=== PATIENT | female | born 1950 | race Caucasian/White ===

== ENCOUNTER 2020-02-26 09:54 | Emergency (ER) | payer MEDICARE, SELFPAY ==
[2020-02-26 10:01] VITALS: BP 132/69; PULSE 72; RESP 12; TEMP 36.7; O2SAT 100
--- NOTE | 2020-02-26 10:17 | ED.SKABFB ---
HPI - Skin/Abscess/Foreign Bdy General Chief complaint: Skin/Abscess/Foreign Body Stated complaint: FACIAL LAC Time Seen by Provider: 02/26/20 09:57 Source: patient Mode of arrival: ambulatory Limitations: no limitations History of Present Illness HPI narrative: 69-year-old female presents to [facility] care with complaints of abrasion to left facial cheek. Patient reports that she sustained an abrasion to left facial cheek from a shavonne yard ornament yesterday. Patient reports that her last Tetanus was 10-15 years ago. Patient reports that she has noticed mild swelling and erythema to area this AM. Patient denies fever, body aches, chills, nausea, vomiting and diarrhea MD complaint: other (abrasion ) Onset (ago): day(s) (1) Tetanus up to date: no Location: face (left facial cheek ) Relieving factors: none Exacerbating factors: none Context: none Associated symptoms: denies other symptoms Treatments prior to arrival: none Related Data Home Medications Medication Instructions Recorded Confirmed albuterol sulfate INHALATION 02/26/20 amlodipine 02/26/20 budesonide [Rhinocort Allergy] 1 spray INTRANASAL DAILY 02/26/20 02/26/20 cetirizine [Zyrtec] mg 02/26/20 epinephrine 02/26/20 hydrochlorothiazide 02/26/20 losartan 02/26/20 metoprolol succinate PO 02/26/20 Allergies Allergy/AdvReac Type Severity Reaction Status Date / Time mold Allergy Hives Verified 02/26/20 10:21 sumatriptan AdvReac Mild Swelling Verified 02/26/20 10:21 of Lip/Tongue/Throat SHELLFISH Allergy Unknown Swelling Uncoded 02/26/20 10:02 of Lip/Tongue/Throat Review of Systems Constitutional: Constitutional: Denies chills, Denies fatigue, Denies fever(s) and Denies weakness ENT: Denies dysphagia, Denies dizziness, Denies epistaxis and Denies sore throat Gastrointestinal: Gastrointestinal: Denies abdominal pain, Denies diarrhea, Denies nausea and Denies vomiting Integumentary/Breasts: Skin/Breast: Denies pruritus and Denies skin ulcer Comments: abrasion to left facial cheek Neurologic: Denies vertigo, Denies dizziness, Denies syncope and Denies focal weakness Hematologic/Lymphatic: Hematologic/Lymphatic: Denies easy bruising PMFSH Past Medical History Medical History (Updated 02/26/20 @ 10:33 by Deidra Sparks APRN) Asthma Breast cancer Hypertension Surgical History Surgical History (Updated 02/26/20 @ 10:28 by Deidra Sparks APRN) H/O lumpectomy Social History Social History (Updated 02/26/20 @ 10:29 by Deidra Sparks APRN) Smoking status: Never smoker Exam Const: General: no acute distress Nutritional Appearance: well nourished Orientation/consciousness: patient oriented x3 Neck: Neck: normal visual inspection Resp: Effort & Inspection: normal respiratory effort, not labored, no retractions and not tachypneic Auscultation: clear to auscultation bilaterally Cardio: Rate: regular rate, not bradycardic and not tachycardic Rhythm: regular rhythm Heart sounds: no murmurs Skin: General skin exam: normal color, no jaundice and no pallor Other: 1 cm abrasion noted to left facial cheek with minimal amount of surrounding erythema and swelling. There is no purulent drainage, bleeding or bruising noted Neuro: General: patient oriented x3 Psych: Appearance: grossly normal Mental Status: mental status grossly normal Affect: normal affect Attitude: cooperative Thought content: Yes Normal thought content present Course Vital Signs Vital signs: Vital Signs Temperature 36.7 C 02/26/20 10:01 Pulse Rate 72 02/26/20 10:01 Respiratory Rate 12 02/26/20 10:01 Blood Pressure 132/69 02/26/20 10:01 Pulse Oximetry 100 02/26/20 10:01 Temperature 36.7 C 02/26/20 10:01 Pulse Rate 72 02/26/20 10:01 Respiratory Rate 12 02/26/20 10:01 Blood Pressure 132/69 02/26/20 10:01 Pulse Oximetry 100 02/26/20 10:01 MDM - Skin/Abscess/Foreign Bdy MDM Narrative Medical decis[facility]
[2020-02-26] MEDS: TETANUS,DIPHTHERIA,AC PERTUSSIS ADULT (0.5 ML) BOOSTRIX IM (10:26)
== END 2020-02-26 10:45 | disposition home or self-care (01) ==
PROVIDERS: Emergency Provider Nurse Practitioner Family
DX: L03.211 Cellulitis of face (principal); S00.81XA Abrasion of other part of head, initial encounter; X58.XXXA Exposure to other specified factors, initial encounter; Z23 Encounter for immunization; J45.909 Unspecified asthma, uncomplicated; I10 Essential (primary) hypertension; Z85.3 Personal history of malignant neoplasm of breast
CPT/HCPCS: 90471; 90715; 99213; G0463

== ENCOUNTER 2022-09-27 08:09 | Emergency (ER) | payer MEDICARE, SELFPAY ==
[2022-09-27 08:18] VITALS: BP 118/63; PULSE 76; RESP 16; TEMP 36.2; O2SAT 98
--- NOTE | 2022-09-27 08:39 | ED.URI ---
HPI - URI/Sore Throat General Chief Complaint: Upper Respiratory Infection Stated Complaint: COUGH/WHEEZING/ASTHMA/CHILLS/FEVER Time Seen by Provider: 09/27/22 08:39 Source: patient, RN notes reviewed and old records reviewed Mode of arrival: ambulatory Limitations: no limitations History of Present Illness HPI Narrative: 71 year old female who presents to [facility] care with complaints of cough with loose productive white milky appearing sputum for 3 days, with wheezing, fevers, chills, headaches and body aches starting last night with highest temp noted at 100F. Patient reports that she has used her Breo inhaler, taking Mucinex and Tylenol and takes daily Zyrtec. Patient reports history of allergies sees vice president and also asthma. Patient denies any nausea, vomiting or diarrhea, has been COVID vaccinated and has had flu shot. Patient denies any acute respiratory difficulty with respirations even and no retractions or tachypnea noted. MD elicited complaint: fever, cough and other (Wheezing,asthma, chills ) Pertinent past history: asthma Onset (ago): day(s) (3) Description of mucous: other (white) Able to tolerate fluids by mouth: Yes Treatments prior to arrival: acetaminophen and other (Breo inhaler, Zyrtec, Mucinex) Related Data Home Medications Medication Instructions Recorded Confirmed albuterol sulfate 90 mcg/actuation 2 puff inhalation PRN PRN Wheezing 02/26/20 09/27/22 aerosol inhaler amlodipine 2.5 mg tablet 2.5 mg PO DAILY 02/26/20 09/27/22 cetirizine 10 mg tablet (Zyrtec) 10 mg PO DAILY 02/26/20 09/27/22 epinephrine 0.3 mg/0.3 mL 0.3 mg IM PRN PRN Allergic Reaction 02/26/20 09/27/22 injection, auto-injector hydrochlorothiazide 25 mg tablet 25 mg PO DAILY 02/26/20 09/27/22 losartan 50 mg tablet 50 mg PO DAILY 02/26/20 09/27/22 metoprolol succinate 25 mg 25 mg PO DAILY 02/26/20 09/27/22 tablet,extended release 24 hr fluticasone furoate 100 1 inh inhalation DAILY 09/27/22 09/27/22 mcg-vilanterol 25 mcg/dose inhalation powder (Breo Ellipta) Allergies Allergy/AdvReac Type Severity Reaction Status Date / Time mold Allergy Hives Verified 09/27/22 08:32 sumatriptan AdvReac Mild Swelling Verified 09/27/22 08:32 of Lip/Tongue/Throat SHELLFISH Allergy Unknown Swelling Uncoded 02/26/20 10:02 of Lip/Tongue/Throat Review of Systems Review of Systems: CONSTITUTIONAL: Reports malaise, chills, sweats, or fever. EYES: Denies visual changes, redness, or discharge. ENT: Reports rhinorrhea, congestion, sinus pain,no otalgia and no sore throat. CARDIOVASCULAR: Denies chest pain, palpitations, or edema. RESPIRATORY: Reports cough.? Denies any acute dyspnea. GASTROINTESTINAL: Denies abdominal pain, nausea, vomiting, diarrhea SKIN: Denies rash or itching. MUSCULOSKELETAL: Reports myalgia. NEUROLOGIC: Reports headache. All systems reviewed & are unremarkable except as noted in HPI and below PMFSH Past Medical History Medical History (Updated 09/27/22 @ 09:33 by Emma Day NP) Asthma Breast cancer Environmental allergies GERD (gastroesophageal reflux disease) Hypertension Surgical History Surgical History (Updated 09/27/22 @ 09:35 by Emma Day NP) H/O lumpectomy left and radiation treatments S/P tendon repair right hand Social History Social History (Updated 09/27/22 @ 09:34 by Emma Day NP) Smoking status: Never smoker Alcohol intake: current Alcohol use details: rare social Substance use type: does not use Living arrangements: with family Gender identity (if verbalized by the patient): Female Comments At time of signature, agree with nursing past medical, surgical, social and family history. There is no relevant family history pertinent to the presenting complaint Exam Narrative: GENERAL: Well-appearing, well-nourished, and in no acute distress. HEAD: Normocephalic EYES: PERRLA, conjunctivae clear ENT: Nares
== END 2022-09-27 09:00 | disposition home or self-care (01) ==
PROVIDERS: Emergency Provider Registered Nurse
DX: J10.1 Influenza due to other identified influenza virus with other respiratory manifestations (principal); J45.41 Moderate persistent asthma with (acute) exacerbation; Z20.822 Contact with and (suspected) exposure to COVID-19; K21.9 Gastro-esophageal reflux disease without esophagitis; I10 Essential (primary) hypertension; Z85.3 Personal history of malignant neoplasm of breast; Z92.3 Personal history of irradiation
CPT/HCPCS: 87426; 87804; 99213; C9803; G0463

== ENCOUNTER 2022-12-27 10:34 | Outpatient (CLI) | payer MEDICARE, SELFPAY ==
--- NOTE | 2022-12-27 10:53 | ECG_ITS ---
Measurements Intervals [place] Rate: 72 P: 68 MD: 233 QRS: -47 QRSD: 126 T: 43 QT: 414 QTc: 456 Interpretive Statements SINUS RHYTHM WITH FIRST DEGREE AV BLOCK LEFT BUNDLE BRANCH BLOCK NO PREVIOUS ECG AVAILABLE FOR COMPARISON Electronically Signed On 12-27-2022 15:25:15 CDT by Marsha Chawla M.D.
[2022-12-27 11:32] LABS: Anion Gap 4 mmol/L (8-16); Blood Urea Nitrogen 17 mg/dL (7-17); Calcium 9.2 mg/dL (8.4-10.2); Carbon Dioxide 29 mmol/L (22-30); Chloride 104 mmol/L (98-107); Estimated Glomerular Filt Rate > 60; Glucose 86 mg/dL (65-110); Potassium 3.4 mmol/L (3.4-5.0); Sodium 137 mmol/L (137-145)
== END 2022-12-27 10:35 | disposition home or self-care (01) ==
PROVIDERS: Anesthesiology; Visit Provider Podiatrist Foot & Ankle Surgery
DX: Z01.812 Encounter for preprocedural laboratory examination (principal); Z01.810 Encounter for preprocedural cardiovascular examination; I10 Essential (primary) hypertension; Z79.899 Other long term (current) drug therapy; I44.7 Left bundle-branch block, unspecified; I44.0 Atrioventricular block, first degree
CPT/HCPCS: 36415; 80048; 93005

== ENCOUNTER 2022-12-29 00:30 | Day surgery (SDC) | payer MEDICARE, SELFPAY ==
[2022-12-22 09:41] VITALS: BMI 28.7
--- NOTE | 2022-12-22 09:54 | PC.NURSE ---
PRE-OP INSTRUCTIONS, PLEASE READ CAREFULLY Report to the Outpatient Waiting Room, entrance under the green pavilion located off [facility], at time _0700_ on date _12/29/22_. Planned Procedure Time: _0900_. Time changes happen often and if your time is changed the preop area will call you the afternoon before. - You and your visitor will be asked to self-screen and do not enter if you have any COVID symptoms. - A mask is optional within the hospital at this time. Patients may have clear liquids (water, carbonated beverages, clear teas, apple juice) until 3 hours prior to surgery (0600 AM) with a maximum of 20 ounces. - No food from midnight until time of surgery Take the following medications with a SIP of water the morning of surgery: _AMLODIPINE, METOPROLOL, BREO INHALER_ DO NOT STOP ANY OF YOUR OTHER PRESCRIPTION MEDICATIONS PRIOR TO SURGERY ?EXCEPT THE FOLLOWING Medications to discontinue per ANESTHESIA - _MULTIVITAMIN 3 DAYS PRIOR TO SURGERY, Date to take last dose 12/25/22_ Please no make-up, nail moroccan, hairspray, perfume, deodorant, or body powder the day of surgery. No jewelry (including any body piercings) or valuables the day of surgery, leave them at home. Please take a shower or bath the night before, or the morning of, surgery with an antibacterial soap. Wear comfortable, loose fitting clothing. - Jewelry must be removed prior to entering the operating room. Rings and piercings that are not removed may be cut off. - The hospital will not accept responsibility for valuables. - Please leave all valuables, including medications, at home the day of surgery. If you are going home after surgery, a licensed motor bus driver must drive you home. - NO public transportation without another adult if you receive anesthesia. - We recommend that an adult stay with you for 24 hours following discharge. - We also recommend that you do not drive, make important decision, drink alcoholic beverages, or take any drugs that were not prescribed by your health care provider for at least 24 hours after your discharge time. Follow any additional instructions given to you from your surgeon. If you or anyone in your household have experienced Covid symptoms in the past week, please notify your surgeon or the nurse liaison at the phone number below for possible testing. Instructions given to _PATIENT_and asked if any additional questions and then verbalized understanding. Patient advised to call surgeon office or pre surgery nurse liaison [phone] if any additional questions.
[2022-12-29] VITALS (8 sets, daily range): BP systolic 96–146; BP diastolic 42–89; PULSE 63–85; RESP 12–18; TEMP 36.1–36.2; O2SAT 98–100
--- NOTE | ~2022-12-29 | XR_ITS ---
EXAMINATION: XR surgery orthopedic DATE: 12/29/2022 12:52 INDICATION: Orthopedic procedure at the right foot. TECHNIQUE: 2 fluoroscopic images of the right hindfoot were obtained during procedure performed by Dr Kentrell Hardwick. Radiologist was not present for the imaging or procedure. The amount of fluoroscopy time used during this procedure was 0.1 minutes. COMPARISON: None. FINDINGS: Initial image demonstrates the tip of a hemostat projecting over a small calcific density representin g an enthesophyte and/or enthesopathic ossicle at the calcaneal insertion of the distal Achilles tend on. Subsequent image demonstrates a minimal amount of gas at the site of the calcification which has been nearly completely resected. Bone alignment is normal. No fracture. Joint spaces are unremarkable . IMPRESSION: 1. Fluoroscopy utilized during resection of an enthesophyte and/or enthesopathic ossicle at the calca bhavna insertion of the distal Achilles tendon. Reviewed, dictated and finalized at location A. IMPRESSION: 1. Fluoroscopy utilized during resection of an enthesophyte and/or enthesopathi c ossicle at the calcaneal insertion of the distal Achilles tendon.
--- NOTE | 2022-12-29 07:19 | WPDHPUPDATE1 ---
History and Physical Update Update Date/Time: 12/29/22 07:19 History and Physical has been reviewed, including an updated exam of the patient. There are NO changes in the patient's condition. Risks, benefits, and alternatives have been discussed and questions answered. Patient agrees to proceed with procedure.
[2022-12-29] MEDS: LACTATED RINGERS 1,000 ML 30 ML IV CONT ×2 (09:20→13:16)
--- NOTE | 2022-12-29 09:48 | WPDANESEPPF ---
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 Patient Data Age: 72 Gender: F Height: 1.56 m Weight: 70.7 kg Last Vital Signs Temp 36.1 C L 12/29/22 08:43 Pulse 63 12/29/22 08:43 Resp 18 12/29/22 08:43 BP 146/66 H 12/29/22 08:43 Pulse Ox 100 12/29/22 08:43 O2 Del Method Room Air 12/29/22 08:43 Allergies Allergy/AdvReac Type Severity Reaction Status Date / Time shellfish derived Allergy Severe Swelling Verified 12/29/22 08:58 of Lip/Tongue/Throat mold Allergy Hives Verified 12/29/22 08:49 sumatriptan AdvReac Mild Swelling Verified 12/29/22 08:49 of Lip/Tongue/Throat Home Medications Medication Instructions Recorded Confirmed Type albuterol sulfate 90 mcg/actuation 2 puff inhalation PRN PRN Wheezing 02/26/20 12/29/22 History aerosol inhaler amlodipine 2.5 mg tablet 2.5 mg PO DAILY 02/26/20 12/29/22 History cetirizine 10 mg tablet (Zyrtec) 10 mg PO DAILY 02/26/20 12/29/22 History epinephrine 0.3 mg/0.3 mL 0.3 mg IM PRN PRN Allergic Reaction 02/26/20 12/29/22 History injection, auto-injector hydrochlorothiazide 25 mg tablet 12.5 mg PO DAILY 02/26/20 12/29/22 History losartan 50 mg tablet 25 mg PO DAILY 02/26/20 12/29/22 History metoprolol succinate 25 mg 25 mg PO DAILY 02/26/20 12/29/22 History tablet,extended release 24 hr fluticasone furoate 100 1 inh inhalation DAILY 09/27/22 12/29/22 History mcg-vilanterol 25 mcg/dose inhalation powder (Breo Ellipta) multivitamin 1 tablet PO DAILY 08/11/23 08/18/23 History omeprazole 20 mg tablet,delayed 20 mg PO DAILY PRN ACID REFLEX 12/22/22 12/29/22 History release Patient hx anesthesia problems: post op nausea/vomiting Family hx anesthesia problems: none Results Review: All pre-operative results and documents have been reviewed as part of the pre-operative evaluation. [facility] Past Medical History Medical History Asthma Breast cancer Environmental allergies GERD (gastroesophageal reflux disease) Hypertension Surgical History Surgical History H/O lumpectomy left and radiation treatments S/P tendon repair right hand Social History Social History Smoking status: Never smoker Second hand tobacco smoke exposure: No Alcohol intake: current Alcohol use details: 1-2 GLASSES WINE/WEEK Substance use: never Substance use type: does not use Living arrangements: with family Gender identity (if verbalized by the patient): Female Spiritual care concerns: No Anes - Eval Final PreProcedure Day of Procedure 12/29/22 09:48 Patient weight: overweight Heart: regular rate and rhythm Lungs: clear to auscultation Airway: Mallampati scale class II Neurological: alert and oriented Last oral intake: >/= 8 hours ASA classification: III Emergent: no Anesthetic plan: proceed Anesthesia type and monitoring: general LMA and standard monitoring Results Review: All pre-operative results and documents have been reviewed as part of the pre-operative evaluation. Informed Consent: The patient's anesthetic plan and its attendant risks and benefits were discussed with the patient/family/POA. Questions were solicited and answers provided to the satisfaction of the patient/family/POA.
--- NOTE | 2022-12-29 11:12 | SUR.PREOP ---
PT UPDATED ON SURGERY TIME DELAY. WARM BLANKET GIVEN.
[2022-12-29] MEDS: ceFAZolin 2 GM/D5W 50 ML 2 GM/50 ML BAG IVPB (11:59)
--- NOTE | 2022-12-29 13:32 | W.PM.PROC2 ---
Procedure Note - Detailed Date of Procedure 12/29/22 Pre-op Diagnosis Retrocalcaneal Exostosis Right Foot Post-op Diagnosis Same Procedure Performed Retrocalcaneal exostectomy right foot Surgeon Omar Hardwick JR, REFUGIO Anesthesia General and Local Indications Painful enthesophyte to the posterior lateral calcaneus right foot with a large hyperkeratotic lesion Findings Osseous promince to the posterior calcaneus right Description of Procedure Under mild sedation, the patient was brought to the operating room, placed on the operating table in the lateral decubitus position. A pneumatic thigh tourniquet was placed about the patient's right calf. Following general anesthesia I performed a lateral ankle local anesthetic nerve block with 20cc's of 2% Lidocaine plain and 0.5% Marcaine plain. The right foot and distal leg was then scrubbed, prepped, and draped in the usual aseptic manner. An Esmarch bandage was then used to exsanguinate the patient's right foot and pneumatic calf tourniquet was then inflated. Surgery began in the following manner. Attention was directed to the posterior lateral aspect of right heel where a curvilinear J shaped incision was made lateral to the retrocalcaneal exostosis which was palpable and visible subcutaneously and also with a large hyperkeratotic lesion. The incision was made only 3cm in length. The incision was continued deep down through the subcutaneous tissues using sharp and blunt dissection. All bleeders were cauterized as necessary. At this point dissection was continued exposing the the insertional component of the Achilles Tendon laterally. The osseous prominence was visualized deep to the Achilles Tendon, which was incised at this point. An osteotome and mallet was used to resect the prominence. All rough edges were smoothed with a bone rasp. The area was flushed with copious amounts of sterile saline. Fluoroscopy was used to make sure that enough of the retrocalcaneal region. Next, utilizing standard principle and techniques the Arthrex Suture Barber system was used to reattach the small lateral slip of the Achilles tendon to the posterior calcaneus. Comparable tension to the contralateral foot was maintained. Adequate stable reattachment was noted. I flushed the wound site with copious amounts of sterile saline. Next, the paratenon and overlying subcutaneous tissue was reapproximated with 4-0 Vicryl. Next, the skin was reapproximated and coapted util 4-0 Monocryl in running subcuticular suture fashion technique. Upon completion of the procedure, the incision was dressed with Steri Strips 1/4 inch, Adaptic, 4 x 4's, Kerlix, and Coban. The pneumatic calf tourniquet was then deflated and a prompt hyperemic response noted to all digits of the right foot. The patient did very well with the procedure and the anesthesia. She was transferred to the recovery room with vital signs stable and vascular status intact to all toes of the right foot. Following a period of postoperative monitoring, the patient will be discharged home on the following written and oral postoperative instructions: 1. Keep the dressing clean, dry, and intact. Use a cast protector bag with showers. 2. The patient to be protected with a surgical shoe with a knee scooter or walker as needed. 3. The patient should ice and elevate the right foot when at rest. 4. The patient to contact Dr. Hardwick for all postop care and if any problems arise. 5. Prescriptions were written for Tramadol dispensed 40 to be taken 1 p.o. q.4 to 6 hours as needed for severe pain. Implants Artrex Suture Barber Estimated Blood Loss 1 Drains No Packing No Pathology None sent Complications No immediate complications Condition Stable Disposition Same day
[2022-12-29] MEDS: fentaNYL CITRATE INJ (*CRX) 100 MCG/2 ML VIAL 25 MCG IV PUSH ×2 (13:55→13:58)
[2022-12-29] MEDS: traMADol HCL (*CRX) 50 MG TABLET PO (14:47)
== END 2022-12-29 15:27 | disposition home or self-care (01) ==
PROVIDERS: Visit Provider Podiatrist Foot & Ankle Surgery
PROC: (CPT 28118; principal; 2022-12-29 10:30)
DX: M77.31 Calcaneal spur, right foot (principal); K21.9 Gastro-esophageal reflux disease without esophagitis; I10 Essential (primary) hypertension; J45.909 Unspecified asthma, uncomplicated; Z85.3 Personal history of malignant neoplasm of breast; Z79.51 Long term (current) use of inhaled steroids; Z86.73 Personal history of transient ischemic attack (TIA), and cerebral infarction without residual deficits
CPT/HCPCS: 28118; 36415; 80048; 93005; 99199; A9270; C1713; J0330; J0690; J1100; J2405; J2704; J3010; J7120

== ENCOUNTER 2023-01-02 08:49 | Emergency (ER) | payer MEDICARE, SELFPAY ==
--- NOTE | ~2023-01-02 | XR_ITS ---
EXAMINATION: XR soft tissue neck DATE: 01/02/2023 09:22 INDICATION: Sore throat. Recent intubation. TECHNIQUE: 2 views of the neck soft tissues were obtained. COMPARISON: None. FINDINGS: The adenoids, palatine tonsils, prevertebral soft tissues, epiglottis, and glottis are norm al. No radiopaque foreign body. IMPRESSION: 1. Normal neck soft tissues. Reviewed, dictated and finalized at location A.
[2023-01-02 09:03] VITALS: BP 151/84; PULSE 70; RESP 16; TEMP 36.8; O2SAT 100
[2023-01-02 09:07] VITALS: BP 151/84; PULSE 70; RESP 16; TEMP 36.8; O2SAT 100
--- NOTE | 2023-01-02 09:10 | ED.GENADULT ---
HPI - General Adult General Chief complaint: Upper Respiratory Infection Stated complaint: DIFF SWALLOWING S/P SURGERY Source: patient and RN notes reviewed Mode of arrival: ambulatory Limitations: no limitations History of Present Illness HPI narrative: Patient is a 72-year-old female who presents to the [facility] with complaints of throat pain and difficulty swallowing since Sunday. Patient states that she had to be intubated for a heel spur surgery on Sunday. She was told by the anesthesiologist that they had trouble getting the tube in. she states that she has been having pain ever since she woke up from surgery and it continues to be hard for her to swallow. However, she is able to handle secretions without difficulty. Her airway is patent. She states that she has the sensation that there is something in her throat that she needs to swallow. Related Data Home Medications Medication Instructions Recorded Confirmed albuterol sulfate 90 mcg/actuation 2 puff inhalation PRN PRN Wheezing 02/26/20 01/02/23 aerosol inhaler amlodipine 2.5 mg tablet 2.5 mg PO DAILY 02/26/20 01/02/23 cetirizine 10 mg tablet (Zyrtec) 10 mg PO DAILY 02/26/20 01/02/23 epinephrine 0.3 mg/0.3 mL 0.3 mg IM PRN PRN Allergic Reaction 02/26/20 01/02/23 injection, auto-injector hydrochlorothiazide 25 mg tablet 12.5 mg PO DAILY 02/26/20 01/02/23 losartan 50 mg tablet 25 mg PO DAILY 02/26/20 01/02/23 metoprolol succinate 25 mg 25 mg PO DAILY 02/26/20 01/02/23 tablet,extended release 24 hr fluticasone furoate 100 1 inh inhalation DAILY 09/27/22 01/02/23 mcg-vilanterol 25 mcg/dose inhalation powder (Breo Ellipta) multivitamin 1 tablet PO DAILY 12/22/22 01/02/23 omeprazole 20 mg tablet,delayed 20 mg PO DAILY PRN ACID REFLEX 12/22/22 01/02/23 release Allergies Allergy/AdvReac Type Severity Reaction Status Date / Time shellfish derived Allergy Severe Swelling Verified 01/02/23 09:02 of Lip/Tongue/Throat mold Allergy Hives Verified 01/02/23 09:02 sumatriptan AdvReac Mild Swelling Verified 01/02/23 09:02 of Lip/Tongue/Throat Review of Systems Review of Systems: CONSTITUTIONAL: Denies fever, chills, or sweats. EYES: Denies visual changes, redness, or discharge. ENT: Reports sore throat. CARDIOVASCULAR: Denies chest pain, palpitations, or edema. RESPIRATORY: Denies cough or dyspnea. GASTROINTESTINAL: Denies abdominal pain, nausea, vomiting, or diarrhea. GENITOURINARY: Denies dysuria or hematuria. SKIN: Denies rash or itching. MUSCULOSKELETAL: Denies back pain, joint pain, or myalgia. NEUROLOGIC: Denies headache, numbness, or weakness. Pertinent positives per HPI. [facility] Past Medical History Medical History Asthma Breast cancer Environmental allergies GERD (gastroesophageal reflux disease) Hypertension Surgical History Surgical History H/O lumpectomy left and radiation treatments S/P tendon repair right hand Social History Social History Smoking status: Never smoker Second hand tobacco smoke exposure: No Alcohol intake: current Alcohol use details: 1-2 GLASSES WINE/WEEK Substance use: never Substance use type: does not use Living arrangements: with family Gender identity (if verbalized by the patient): Female Spiritual care concerns: No Comments At the time of my signature, I reviewed and agree with the nursing past medical, surgical, social, and family history. There is no relevant family history pertinent to the patient complaint. Exam Narrative: GENERAL: This is a well-nourished, well-developed patient, in no apparent distress. HEAD: normocephalic, atraumatic. EYES: Sclera clear/white. Vision is grossly intact. EARS: External ears normal, auditory canals clear and without drainage, TMs normal without perf
== END 2023-01-02 09:43 | disposition home or self-care (01) ==
PROVIDERS: Emergency Provider Nurse Practitioner
DX: R07.0 Pain in throat (principal); J45.909 Unspecified asthma, uncomplicated; K21.9 Gastro-esophageal reflux disease without esophagitis; I10 Essential (primary) hypertension; Z85.3 Personal history of malignant neoplasm of breast
CPT/HCPCS: 70360; 87081; 87880; 99213; G0463

== ENCOUNTER 2024-07-09 10:49 | Emergency (ER) | payer MEDICARE, SELFPAY ==
[2024-07-09] VITALS (10 sets, daily range): BP systolic 109–152; BP diastolic 36–65; PULSE 40–53; RESP 12–19; TEMP 36.6; O2SAT 96–100
--- NOTE | ~2024-07-09 | XR_ITS ---
CHEST RADIOGRAPH, PA AND LATERAL CLINICAL HISTORY: syncope . COMPARISON: None available TECHNIQUE: PA and lateral views of the chest. FINDINGS The cardiomediastinal silhouette is enlarged. The lungs are clear. Diffuse bony demineralization within the thoracic spine. IMPRESSION: Cardiomegaly, without focal infiltrate or effusion. Reviewed, dictated and finalized at location A. SITOLOGY TEACHER
--- NOTE | 2024-07-09 10:53 | ECG_ITS ---
Test Date: 2024-07-09 10:59:02 Measurements Intervals [place] Rate: 43 P: 0 WA: 0 QRS: 129 QRSD: 140 T: -42 QT: 559 QTc: 478 Interpretive Statements SINUS RHYTHM WITH COMPLETE HEART BLOCK JUNCTIONAL ESCAPE RHYTHM RIGHT AXIS DEVIATION RIGHT BUNDLE BRANCH BLOCK T WAVE ABNRMALITY IN INF/LAT LEADS- CONSIDER ISCHEMIA BASELINE ARTIFACT- I, III, AVR, AVL, AVF ABNORMAL ECG No previous ECG available for comparison Electronically Signed On 07-09-2024 15:45:14 CASH MANAGEMENT ASSOCIATE by Dylan Holloway D.O.
[2024-07-09 11:16] LABS: Basophils Absolute Auto 0.1 K/mm3 (0.0-0.1); Basophils Percent Auto 0.6 % (0.2-1.2); Eosinophils Absolute Auto 0.2 K/mm3 (0-0.3); Eosinophils Percent Auto 1.9 % (0-4.4); Hemoglobin 13.4 g/dL (12.0-15.0); Immature Granulocyte Absolute 0.03 K/mm3 (0.00-0.031); Immature Granulocyte Percent A 0.3 % (0-0.5); Lymphocytes Percent Auto 26.6 % (18.3-44.2); Mean Corpuscular HGB Conc 31.9 g/dl (32-36); Mean Corpuscular Hemoglobin 27.2 pg (26-34); Mean Corpuscular Volume 85.2 fl (80-100); Mean Platelet Volume 9.7 fl (7.4-10.4); Monocytes Absolute Auto 0.7 K/mm3 (0.1-0.6); Monocytes Percent Auto 8.1 % (2.6-8.5); Neutrophils Absolute Auto 5.6 K/mm3 (1.3-6.7); Neutrophils Percent Auto 62.5 % (45.5-73.1); Platelet Count Result 288 k/mm3 (150-375); Red Blood Count 4.93 M/mm3 (4.2-5.4)
[2024-07-09 11:26] LABS: Alanine Aminotransferase 25 U/L (6-35); Alkaline Phosphatase 72 U/L (38-126); Anion Gap 14 mmol/L (4-12); Aspartate Amino Transferase 40 U/L (14-36); Bilirubin,Total 0.6 mg/dL (0.2-1.3); Blood Urea Nitrogen 22 mg/dL (7-17); Carbon Dioxide 24 mmol/L (22-30); Chloride 103 mmol/L (98-107); Estimated CRCL calculation 58 ml/min; Estimated Glomerular Filt Rate > 60; Glucose 118 mg/dL (65-110); Potassium 3.2 mmol/L (3.4-5.0); Sodium 141 mmol/L (137-145)
--- NOTE | 2024-07-09 11:44 | ED.GENADULT ---
HPI - General Adult General Chief complaint: Syncope <Parth Coto MD - Last Filed: 07/09/24 18:23> Stated complaint: syncopal <Parth Coto MD - Last Filed: 07/09/24 18:23> Time Seen by Provider: 07/09/24 11:38 <Parth Coto MD - Last Filed: 07/09/24 18:23> History of Present Illness HPI narrative: Patient is a 73-year-old female who presents ER with syncope. 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 She did eat normally today. No chest pain. No lightheadedness prior to it occurring. Reports she has had some mild exertional shortness of breath and weakness over last 24 hours which is new for her. No new medications. <Parth Coto MD - Last Filed: 07/09/24 18:23> Related Data Home medications: Home Medications ?Medication ?Instructions ?Recorded ?Confirmed ?Last Taken ?Type albuterol sulfate 90 mcg/actuation 2 puff inhalation PRN PRN Wheezing 02/26/20 01/02/23 Unknown History aerosol inhaler amlodipine 2.5 mg tablet 2.5 mg PO DAILY 02/26/20 07/10/24 Unknown History cetirizine 10 mg tablet (Zyrtec) 10 mg PO DAILY 02/26/20 07/10/24 Unknown History epinephrine 0.3 mg/0.3 mL 0.3 mg IM PRN PRN Allergic Reaction 02/26/20 01/02/23 Unknown History injection, auto-injector hydrochlorothiazide 25 mg tablet 12.5 mg PO DAILY 02/26/20 07/10/24 Unknown History losartan 50 mg tablet 25 mg PO DAILY 02/26/20 07/10/24 Unknown History metoprolol succinate 25 mg 25 mg PO DAILY 02/26/20 07/10/24 Unknown History tablet,extended release 24 hr fluticasone furoate 100 1 inh inhalation DAILY 09/27/22 01/02/23 Unknown History mcg-vilanterol 25 mcg/dose inhalation powder (Breo Ellipta) multivitamin 1 tablet PO DAILY 12/22/22 07/10/24 Unknown History omeprazole 20 mg tablet,delayed 20 mg PO DAILY PRN ACID REFLEX 12/22/22 07/10/24 Unknown History release <Parth Coto MD - Last Filed: 07/09/24 18:23> Allergies/adverse reactions: Allergies Allergy/AdvReac Type Severity Reaction Status Date / Time shellfish derived Allergy Severe Swelling Verified 07/09/24 12:23 of Lip/Tongue/Throat mold Allergy Hives Verified 07/09/24 12:23 sumatriptan AdvReac Mild Swelling Verified 07/09/24 12:23 of Lip/Tongue/Throat <Parth Coto MD - Last Filed: 07/09/24 18:23> Review of Systems Review of Systems: All systems reviewed & are unremarkable except as noted in HPI and below <Parth Coto MD - Last Filed: 07/09/24 18:23> Constitutional: Constitutional: Reports no additional constitutional complaints <Parth Coto MD - Last Filed: 07/09/24 18:23> ENT: Reports system reviewed and no additional complaints, except as documented <Parth Coto MD - Last Filed: 07/09/24 18:23> Cardiovascular: Cardiovascular: Reports no additional cardiovascular complaints <Parth Coto MD - Last Filed: 07/09/24 18:23> Respiratory: Respiratory: Reports no additional respiratory complaints <Parth Coto MD - Last Filed: 07/09/24 18:23> Musculoskeletal: Musculoskeletal: Reports no additional musculoskeletal complaints <Parth Coto MD - Last Filed: 07/09/24 18:23> PMFSH Past Medical History Medical History: Medical History Asthma Breast cancer Environmental allergies GERD (gastroesophageal reflux disease) Hypertension <Parth Coto MD - Last Filed: 07/09/24 18:23> Surgical History Surgical History: Surgical History H/O lumpectomy left and radiation treatments S/P tendon repair right hand <Parth Coto MD - Last Filed: 07/09/24 18:23> Social History Social History: Social History Smoking status: Never smoker Second hand tobacco smoke exposure: No Alcohol intake: current Alcohol use details: 1-2 GLASSES WINE/WEEK Substance use: never Substance use type: does not use Living arrangements: with family Gender identity (if verbalized by the patient): Female Spiritual care concerns: No <Parth Coto MD - Last Filed: 07/09/24 18:23> Exam Narrative: GENERAL: Well-appearing, well-nourished, and in no acute distress. HEAD: Normocephalic, atraumatic. ENT: Mucous membranes moist. NECK: Supple. CHEST: Clear to auscultation. No respiratory distress. HEART: Bradycardic and regular. Normal peripheral pulses. ABDOMEN: Soft, nontender, nondistended. EXTREMITIES: Normal range of motion. No edema. SKIN: Warm, dry, no rash. NEURO: Alert and oriented x3. PSYCH: Normal mood and affect. <Parht Coto MD - Last Filed: 07/09/24 18:23> Course Course Emergency Course: Patient resting comfortably and asymptomatic. Informed of results. Received glucagon without improvement of heart rate. Discussed case with Dr. Mercado with Cardiology Oncology at [facility]. They accept the patient for transfer to the high risk cardiology unit. We do not have the ability to perform pacemaker placement at this facility. Patient understands the plan we are now awaiting a bed. <Parth Coto MD - Last Filed: 07/09/24 18:23> Patient resting comfortably and asymptomatic. Informed of results. Received glucagon without improvement of heart rate. Discussed case with Dr. Mercado with Cardiology Oncology at [facility]. They accept the patient for transfer to the high risk cardiology unit. We do not have the ability to perform pacemaker placement at this facility. Patient understands the plan we are now awaiting a bed. While waiting for a bed at [facility] the patient had a brief run of torsades de pointes and had a cardiac arrest during CPR the patient had return of spontaneous circulation with return of neurologic function the patient was given 2 g of magnesium the case was discussed with Dr. Doshi of the [facility] cardiology service the patient will be accepted to the ICU at [facility] 75 minutes of critical care time was provided excluding separate billable procedures <Marcin Pedersen MD - Last Filed: 07/10/24 19:14> Vital Signs Vital signs: Vital Signs Temperature 36.6 C 07/09/24 10:48 Pulse Rate 53 L 07/09/24 10:48 Respiratory Rate 13 07/09/24 10:48 Blood Pressure 138/47 L 07/09/24 10:48 Pulse Oximetry 100 07/09/24 10:48 Oxygen Delivery Room Air 07/09/24 10:48 Temperature 36.6 C 07/10/24 08:02 Pulse Rate 44 L 07/10/24 17:15 Respiratory Rate 14 07/10/24 17:15 Blood Pressure 147/62 H 07/10/24 17:04 Pulse Oximetry 99 07/10/24 17:04 Oxygen Delivery Room Air 07/09/24 10:48 <Parth Coto MD - Last Filed: 07/09/24 18:23> Vital Signs Temperature 36.6 C 07/09/24 10:48 Pulse Rate 53 L 07/09/24 10:48 Respiratory Rate 13 07/09/24 10:48 Blood Pressure 138/47 L 07/09/24 10:48 Pulse Oximetry 100 07/09/24 10:48 Oxygen Delivery Room Air 07/09/24 10:48 Temperature 36.6 C 07/10/24 08:02 Pulse Rate 44 L 07/10/24 17:15 Respiratory Rate 14 07/10/24 17:15 Blood Pressure 147/62 H 07/10/24 17:04 Pulse Oximetry 99 07/10/24 17:04 Oxygen Delivery Room Air 07/09/24 10:48 <Marcin Pedersen MD - Last Filed: 07/10/24 19:14> Medical Decision Making Vital Signs Vital Signs: Vital Signs Temperature 36.6 C 07/09/24 10:48 Pulse Rate 53 L 07/09/24 10:48 Respiratory Rate 13 07/09/24 10:48 Blood Pressure 138/47 L 07/09/24 10:48 Pulse Oximetry 100 07/09/24 10:48 Oxygen Delivery Room Air 07/09/24 10:48 Temperature 36.6 C 07/10/24 08:02 Pulse Rate 44 L 07/10/24 17:15 Respiratory Rate 14 07/10/24 17:15 Blood Pressure 147/62 H 07/10/24 17:04 Pulse Oximetry 99 07/10/24 17:04 Oxygen Delivery Room Air 07/09/24 10:48 <Parth Coto MD - Last Filed: 07/09/24 18:23> Vital Signs Temperature 36.6 C 07/09/24 10:48 Pulse Rate 53 L 07/09/24 10:48 Respiratory Rate 13 07/09/24 10:48 Blood Pressure 138/47 L 07/09/24 10:48 Pulse Oximetry 100 07/09/24 10:48 Oxygen Delivery Room Air 07/09/24 10:48 Temperature 36.6 C 07/10/24 08:02 Pulse Rate 44 L 07/10/24 17:15 Respiratory Rate 14 07/10/24 17:15 Blood Pressure 147/62 H 07/10/24 17:04 Pulse Oximetry 99 07/10/24 17:04 Oxygen Delivery Room Air 07/09/24 10:48 <Marcin Pedersen MD - Last Filed: 07/10/24 19:14> Lab Data Result diagrams: 07/09/24 11:11 07/09/24 14:49 <Parth Coto MD - Last Filed: 07/09/24 18:23> Labs: Lab Results 07/09/24 07/09/24 Range/Units 11:11 14:49 WBC 9.0 (4.5-10.0) K/mm3 RBC 4.93 (4.2-5.4) M/mm3 Hgb 13.4 (12.0-15.0) g/dL Hct 42.0 (37.0-47.0) % MCV 85.2 (80-100) fl MCH 27.2 (26-34) pg MCHC 31.9 L (32-36) g/dl RDW 13.0 (11.5-14.5) % Plt Count 288 (150-375) k/mm3 MPV 9.7 (7.4-10.4) fl Immature Gran % (Auto) 0.3 (0-0.5) % Neut % (Auto) 62.5 (45.5-73.1) % Lymph % (Auto) 26.6 (18.3-44.2) % Iroquois % (Auto) 8.1 (2.6-8.5) % Eos % (Auto) 1.9 (0-4.4) % Baso % (Auto) 0.6 (0.2-1.2) % Lymph # (Auto) 2.40 (0.9-3.2) K/mm3 [place] # (Auto) 0.7 H (0.1-0.6) K/mm3 Eos # (Auto) 0.2 (0-0.3) K/mm3 Baso # (Auto) 0.1 (0.0-0.1) K/mm3 Abs Immat Gran (auto) 0.03 (0.00-0.031) K/mm3 Absolute Neuts (auto) 5.6 (1.3-6.7) K/mm3 Absolute Nucleated RBC 0.000 (0.0-0.012) K/mm3 Nucleated RBC % 0.0 (0.0-0.2) % Sodium 141 (137-145) mmol/L Potassium 3.2 L 3.7 (3.4-5.0) mmol/L Chloride 103 (98-107) mmol/L Carbon Dioxide 24 (22-30) mmol/L Anion Gap 14 H (4-12) mmol/L BUN 22 H (7-17) mg/dL Creatinine 0.68 L (0.7-1.0) mg/dL Estim Creat Clear Calc 58 ml/min Estimated GFR > 60 (59 - ) Glucose 118 H (65-110) mg/dL Calcium 9.0 (8.4-10.2) mg/dL Total Bilirubin 0.6 (0.2-1.3) mg/dL AST 40 H (14-36) U/L ALT 25 (6-35) U/L Alkaline Phosphatase 72 (38-126) U/L Troponin I < 0.012 (0.000-0.034) ng/mL NT-Pro-B Natriuret Pep 1450 H (19.9-100) pg/mL Total Protein 7.0 (6.3-8.2) g/dL Albumin 4.0 (3.5-5.1) g/dL <Parth Coto MD - Last Filed: 07/09/24 18:23> Lab Results 07/09/24 07/09/24 Range/Units 11:11 14:49 WBC 9.0 (4.5-10.0) K/mm3 RBC 4.93 (4.2-5.4) M/mm3 Hgb 13.4 (12.0-15.0) g/dL Hct 42.0 (37.0-47.0) % MCV 85.2 (80-100) fl MCH 27.2 (26-34) pg MCHC 31.9 L (32-36) g/dl RDW 13.0 (11.5-14.5) % Plt Count 288 (150-375) k/mm3 MPV 9.7 (7.4-10.4) fl Immature Gran % (Auto) 0.3 (0-0.5) % Neut % (Auto) 62.5 (45.5-73.1) % Lymph % (Auto) 26.6 (18.3-44.2) % [place]quois % (Auto) 8.1 (2.6-8.5) % Eos % (Auto) 1.9 (0-4.4) % Baso % (Auto) 0.6 (0.2-1.2) % Lymph # (Auto) 2.40 (0.9-3.2) K/mm3 [place] # (Auto) 0.7 H (0.1-0.6) K/mm3 Eos # (Auto) 0.2 (0-0.3) K/mm3 Baso # (Auto) 0.1 (0.0-0.1) K/mm3 Abs Immat Gran (auto) 0.03 (0.00-0.031) K/mm3 Absolute Neuts (auto) 5.6 (1.3-6.7) K/mm3 Absolute Nucleated RBC 0.000 (0.0-0.012) K/mm3 Nucleated RBC % 0.0 (0.0-0.2) % Sodium 141 (137-145) mmol/L Potassium 3.2 L 3.7 (3.4-5.0) mmol/L Chloride 103 (98-107) mmol/L Carbon Dioxide 24 (22-30) mmol/L Anion Gap 14 H (4-12) mmol/L BUN 22 H (7-17) mg/dL Creatinine 0.68 L (0.7-1.0) mg/dL Estim Creat Clear Calc 58 ml/min Estimated GFR > 60 (59 - ) Glucose 118 H (65-110) mg/dL Calcium 9.0 (8.4-10.2) mg/dL Total Bilirubin 0.6 (0.2-1.3) mg/dL AST 40 H (14-36) U/L ALT 25 (6-35) U/L Alkaline Phosphatase 72 (38-126) U/L Troponin I < 0.012 (0.000-0.034) ng/mL NT-Pro-B Natriuret Pep 1450 H (19.9-100) pg/mL Total Protein 7.0 (6.3-8.2) g/dL Albumin 4.0 (3.5-5.1) g/dL <Marcin Pedersen MD - Last Filed: 07/10/24 19:14> Imaging Data Radiologist's impression: ITS Impressions Chest X-Ray 07/09/24 13:25 IMPRESSION: Cardiomegaly, without focal infiltrate or effusion. <Parth Coto MD - Last Filed: 07/09/24 18:23> ECG Data EKG #1: ECG completion date: 07/09/24 <Parth Coto MD - Last Filed: 07/09/24 18:23> ECG completion time: 10:59 <Parth Coto MD - Last Filed: 07/09/24 18:23> EKG Interpretation: bradycardia (43), non-specific ST changes, normal QRS, prolonged QT (478 QTc) and other (complete heart block) <Parth Coto MD - Last Filed: 07/09/24 18:23> Critical Care Time Critical Care Time Critical Care Time: Yes <Parth Coto MD - Last Filed: 07/09/24 18:23> Total Critical Care Time: 35 <Parth Coto MD - Last Filed: 07/09/24 18:23> Discharge Plan Discharge Clinical Impression: Complete heart block, Torsades de pointes, Cardiac arrest <Parth Coto MD - Last Filed: 07/09/24 18:23> Patient Disposition: Acute Care Hospital <Parth Coto MD - Last Filed: 07/09/24 18:23> Condition: Stable <Parth Coto MD - Last Filed: 07/09/24 18:23> Patient Language: Peruvian <Parth Coto MD - Last Filed: 02/26/25 18:23> Prescriptions: No Action losartan 50 mg tablet 25 mg PO DAILY cetirizine [Zyrtec] 10 mg Tablet 10 mg PO DAILY amlodipine 2.5 mg tablet 2.5 mg PO DAILY hydrochlorothiazide 25 mg tablet 12.5 mg PO DAILY metoprolol succinate 25 mg tablet extended release 24 hr 25 mg PO DAILY epinephrine 0.3 mg/0.3 mL auto-injector 0.3 mg IM PRN PRN (Reason: Allergic Reaction) albuterol sulfate 90 mcg/actuation HFA aerosol inhaler 2 puff INHALATION PRN PRN (Reason: Wheezing) fluticasone furoate-vilanterol [Breo Ellipta] 100-25 mcg/dose blister with device 1 inh INHALATION DAILY multivitamin Tablet 1 tablet PO DAILY omeprazole 20 mg Tablet,Delayed Release (Dr/Ec) 20 mg PO DAILY PRN (Reason: ACID REFLEX) <Parth Coto MD - Last Filed: 07/09/24 18:23> Follow-up/Referrals: PHYSICIAN NOT ON STAFF,NONSTAFF [Non-Staff] - <Parth Coto MD - Last Filed: 07/09/24 18:23>
[2024-07-09] MEDS: PROMETHAZINE HCL 25 MG/ML AMPUL 12.5 MG IV PUSH (12:24)
[2024-07-09] MEDS: SODIUM CHLORIDE 0.9% IV 50 ML 100 ML (12:31)
[2024-07-09] MEDS: GLUCAGON FOR INJ 1 MG VIAL IV PUSH (13:19)
--- OUTSIDE RECORDS SUMMARY | 2024-07-09 13:41 | XMS_ITS | Encounter Summary ---
Author Organization [facility] Address [address] [place] [address] Care Team Providers Care Clin Asst Name Role Phone Lionel Cunningham MD Primary Care Provider [phone] Encounter Details Date Type Department Care Team (Late st Contact Info) Description 01/20/2003 Outpatient Historical [facility] and [address] [place] [address] Justina Simon MD NO ADDRESS ON FILE Social History Tobacco Use Types Packs/Day Years Used Date Smoking Tobacco: Never Assessed Comments Unknown Sex and Gender Information Value Date Recorded Sex Assigned at Not on file Legal Sex Female 5:26 AM PORTRAIT CONSULTANT Gender Identity Not on file Sexual Orientation Not on file documented as of this encounter Plan of Treatment Upcoming Encounters Date Type Department Care Team (Late st Contact Info) Description 05/21/2025 10:00 AM PORTRAIT CONSULTANT Office Visit [facility] Oncology and Hematology [facility] [address] [place] [address] Sera Jeter DO [address] [place] [address] documented as of this encounter Visit Diagnoses Not on filedocumented in this encounter Care Teams Clin Asst Relationship Specialty [place] [address] [place] [address] PCP - General Internal Medicine 09/29/20 documented as of this encounter
--- OUTSIDE RECORDS SUMMARY | 2024-07-09 13:41 | XMS_ITS | Encounter Summary ---
Author Organization [facility] Facility Care Team Providers Care Bander Name Role Phone Symone Altman MD Primary Care Provider [phone] Lionel Cunningham MD Primary Care Provider [phone] Encounter Details Date Type Department Care Team (Latest Contact Info) Description 05/19/2015 Orders Only [facility] ProviderPadma MD [address] [place] [id number] Social History Tobacco Use Types Packs/Day Years Used Date Smoking Tobacco: Never Assessed Comments Unknown Sex and Gender Information Value Date Recorded Sex Assigned at Not on file Legal Sex Female 10:31 PM STRIPPER COLOR Gender Identity Not on file Sexual Orientation Not on file documented as of this encounter Plan of Treatment Not on file documented as of this encounter Procedures Procedure Name Priority Date/Time Associated Diagnosis Comments PROCEDURE - RESULT 05/19/2015 12 :00 AM STRIPPER COLOR documented in this encounter Results * PROCEDURE - RESULT (05/19/2015 12:00 AM STRIPPER COLOR) Narrative 05/19/2015 12:00 AM STRIPPER COLOR Ordered by an unspecified provider. Historical Provider Final Res ult documented in this encounter Visit Diagnoses Not on filedocumented in this encounter Care Teams Bander Relationship Specialty Start Date End Date Symone Altman MD PCP - General 07/03/16 10/03/21 Lionel Cunningham MD [address] [place] [address] PCP - General Internal Medicine 10/04/21 documented as of this encounter
--- OUTSIDE RECORDS SUMMARY | 2024-07-09 13:41 | XMS_ITS | Encounter Summary ---
Author Organization [facility] Address [address] [place] [address] Care Team Providers Care Brewer Helper Name Role Phone Lionel Cunningham MD Primary Care Provider [phone] Encounter Details Date Type Department Care Team (Latest Contact Info) Description 11/26/2000 Outpatient Historical [facility] PROMISE Simon, Justina Gordon MD NO ADDRESS ON FILE Gynecological examination (Primary Dx) Social History Tobacco Use Types Packs/Day Years Used Date Smoking Tobacco: Never Assessed Comments Unknown Sex and Gender Information Value Date Recorded Sex Assigned at Not on file Legal Sex Female 5:26 AM KNIFE OPERATOR Gender Identity Not on file Sexual Orientation Not on file documented as of this encounter Plan of Treatment Upcoming Encounters Date Type Department Care Team (Late st Contact Info) Description 05/21/2025 10:00 AM KNIFE OPERATOR Office Visit [facility] Oncology and Hematology [facility] [address] [place] [address] Sera Jeter DO [address] [place] [address] documented as of this encounter Visit Diagnoses Diagnosis Gynecological examination- Primary documented in this encounter Care Teams Brewer Helper Relationship Specialty [place] [address] [place] [address] PCP - General Internal Medicine 09/29/20 documented as of this encounter
--- OUTSIDE RECORDS SUMMARY | 2024-07-09 13:41 | XMS_ITS | Encounter Summary ---
Author Organization [facility] Address [address] [place] [address] Care Team Providers Care Land Use Planner Name Role Phone Lionel Cunningham MD Primary Care Provider [phone] Encounter Details Date Type Department Care Team (Late Contact Info) Description 11/22/[address] [facility] ([facility]) [address] [place] [address] Chau Blank MD NO ADDRESS ON FILE Social History Tobacco Use Types Packs/Day Years Used Date Smoking Tobacco: Never Assessed Comments Unknown Sex and Gender Information Value Date Recorded Sex Assigned at Not on file Legal Sex Female 5:26 AM PHOTOENGRAVING APPRENTICE Gender Identity Not on file Sexual Orientation Not on file documented as of this encounter Plan of Treatment Upcoming Encounters Date Type Department Care Team (Late Contact Info) Description 05/21/2025 10:00 AM PHOTOENGRAVING APPRENTICE Office Visit [facility] Oncology and Hematology [facility] [address] [place] [address] Sera Jeter DO [address] [place] [address] documented as of this encounter Visit Diagnoses Not on filedocumented in this encounter Care Teams Land Use Planner Relationship Specialty [place] [address] [place] [address] PCP - General Internal Medicine 09/29/20 documented as of this encounter
--- OUTSIDE RECORDS SUMMARY | 2024-07-09 13:41 | XMS_ITS | Encounter Summary ---
Author Organization [facility] Address [address] [place] [address] Care Team Providers Care Patrol Inspector Name Role Phone Lionel Cunningham MD Primary Care Provider [phone] Encounter Details Date Type Department Care Team (Late Contact Info) Description 11/18/2001 Outpatient Historical [facility] Internal Medicine [facility] and [address] [place] [address] Symone Altman MD [address] [place] [address] Social History Tobacco Use Types Packs/Day Years Used Date Smoking Tobacco: Never Assessed Comments Unknown Sex and Gender Information Value Date Recorded Sex Assigned at Not on file Legal Sex Female 5:26 AM EARLY CHILDHOOD EDUCATION WORKER Gender Identity Not on file Sexual Orientation Not on file documented as of this encounter Plan of Treatment Upcoming Encounters Date Type Department Care Team (Late st Contact Info) Description 05/21/2025 10:00 AM EARLY CHILDHOOD EDUCATION WORKER Office Visit [facility] Oncology and Hematology [facility] [address] [place] [address] Sera Jeter DO [address] [place] [address] documented as of this encounter Visit Diagnoses Not on filedocumented in this encounter Care Teams Patrol Inspector Relationship Specialty [place] [address] [place] [address] PCP - General Internal Medicine 09/29/20 documented as of this encounter
--- OUTSIDE RECORDS SUMMARY | 2024-07-09 13:41 | XMS_ITS | Encounter Summary ---
Author Organization [facility] Address [address] [place] [address] Care Team Providers Care Oven Roaster Name Role Phone Lionel Cunningham MD Primary Care Provider [phone] Encounter Details Date Type Department Care Team (Late Contact Info) Description 05/09/2007 Outpatient Historical [facility] Zahraa Pardo MD NO ADDRESS ON FILE Social History Tobacco Use Types Packs/Day Years Used Date Smoking Tobacco: Never Assessed Comments Unknown Sex and Gender Information Value Date Recorded Sex Assigned at Not on file Legal Sex Female 5:26 AM DIRECTOR SPORTS Gender Identity Not on file Sexual Orientation Not on file documented as of this encounter Plan of Treatment Upcoming Encounters Date Type Department Care Team (Late st Contact Info) Description 05/21/2025 10:00 AM DIRECTOR SPORTS Office Visit [facility] Oncology and Hematology [facility] [address] [place] [address] Sera Jeter DO [address] [place] [address] documented as of this encounter Procedures Procedure Name Priority Date/Time Associated Diagnosis Comments POC CREATININE Routine 05/09/2007 10:58 AM DIRECTOR SPORTS documented in this encounter Results * POC CREATININE (05/09/2007 10:58 AM DIRECTOR SPORTS) CREATININE POC 0.6 0.6 - 1.3 mg/dL INTERFACE SYSTEM 05/09/2007 10:5 8 AM DIRECTOR SPORTS Zahraa Pardo MD POINT OF CARE TESTING Edited INTERFACE SYSTEM Refer to clinic/hospital department documented in this encounter Visit Diagnoses Not on filedocumented in this encounter Care Teams Oven Roaster Relationship Specialty [place] [address] [place] [address] PCP - General Internal Medicine 09/29/20 documented as of this encounter
--- OUTSIDE RECORDS SUMMARY | 2024-07-09 13:41 | XMS_ITS | Encounter Summary ---
Author Organization [facility] Address [address] [place] [address] Care Team Providers Care Rn Home Health Name Role Phone Lionel Cunningham MD Primary Care Provider [phone] Encounter Details Date Type Department Care Team (Latest Contact Info) Description 07/10/2006 Outpatient Historical [facility] Samra Mckee MD [address] [place] [address] [place] [address] [address] Carcinoma in Situ of Breast (Primary Dx) Social History Tobacco Use Types Packs/Day Years Used Date Smoking Tobacco: Never Assessed Comments Unknown Sex and Gender Information Value Date Recorded Sex Assigned at Not on file Legal Sex Female 5:26 AM PREP PERSON Gender Identity Not on file Sexual Orientation Not on file documented as of this encounter Plan of Treatment Upcoming Encounters Date Type Department Care Team (Late st Contact Info) Description 05/21/2025 10:00 AM PREP PERSON Office Visit [facility] Oncology and Hematology [place] [place] [address] [place] [address] Sera Jeter DO [address] [place] [address] documented as of this encounter Visit Diagnoses Diagnosis Carcinoma in situ of breast- Primary documented in this encounter Care Teams Rn Home Health Relationship Specialty [place] [address] [facility] [address] [place] [address] PCP - General Internal Medicine 09/29/20 documented as of this encounter
--- OUTSIDE RECORDS SUMMARY | 2024-07-09 13:41 | XMS_ITS | Encounter Summary ---
Author Organization [facility] Address [address] [place] [address] Care Team Providers Care Relay Mechanic Name Role Phone Lionel Cunningham MD Primary Care Provider [phone] Encounter Details Date Type Department Care Team (Late Contact Info) Description 01/20/2003 Outpatient Historical [facility] Internal Medicine [facility] and [address] [place] [address] Symone Altman MD [address] [place] [address] Social History Tobacco Use Types Packs/Day Years Used Date Smoking Tobacco: Never Assessed Comments Unknown Sex and Gender Information Value Date Recorded Sex Assigned at Not on file Legal Sex Female 5:26 AM PUBLIC RELATIONS INTERN Gender Identity Not on file Sexual Orientation Not on file documented as of this encounter Plan of Treatment Upcoming Encounters Date Type Department Care Team (Late st Contact Info) Description 05/21/2025 10:00 AM PUBLIC RELATIONS INTERN Office Visit [facility] Oncology and Hematology [place] [facility] [place] [address] [place] [address] Sera Jeter DO [address] [place] [address] documented as of this encounter Visit Diagnoses Not on filedocumented in this encounter Care Teams Relay Mechanic Relationship Specialty [place] [address] [place] [address] PCP - General Internal Medicine 09/29/20 documented as of this encounter
--- OUTSIDE RECORDS SUMMARY | 2024-07-09 13:41 | XMS_ITS | Encounter Summary ---
Author Organization [facility] Address [address] [place] [address] Care Team Providers Care Drycleaner Name Role Phone Lionel Cunningham MD Primary Care Provider [phone] Encounter Details Date Type Department Care Team (Late st Contact Info) Description 12/14/2005 Outpatient Historical [address] [place] [address] Justina Simon MD NO ADDRESS ON FILE Social History Tobacco Use Types Packs/Day Years Used Date Smoking Tobacco: Never Assessed Comments Unknown Sex and Gender Information Value Date Recorded Sex Assigned at Not on file Legal Sex Female 5:26 AM SPRAY APPLICATOR Gender Identity Not on file Sexual Orientation Not on file documented as of this encounter Plan of Treatment Upcoming Encounters Date Type Department Care Team (Late st Contact Info) Description 05/21/2025 10:00 AM SPRAY APPLICATOR Office Visit [facility] Oncology and Hematology [facility] [place] [address] [place] [address] Sera Jeter DO [address] [place] [address] documented as of this encounter Visit Diagnoses Not on filedocumented in this encounter Care Teams Drycleaner Relationship Specialty [place] [address] [place] [address] PCP - General Internal Medicine 09/29/20 documented as of this encounter
--- OUTSIDE RECORDS SUMMARY | 2024-07-09 13:41 | XMS_ITS | Encounter Summary ---
Author Organization [facility] Address 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 STATE (Primary Dx) Social History Tobacco Use Types Packs/Day Years Used Date Smoking Tobacco: Never Assessed Comments Unknown Sex and Gender Information Value Date Recorded Sex Assigned at Not on file Legal Sex Female 5:26 AM SPORTS TEAM MARKETING INTERN Gender Identity Not on file Sexual Orientation Not on file documented as of this encounter Plan of Treatment Upcoming Encounters Date Type Department Care Team (Late st Contact Info) Description 05/21/2025 10:00 AM SPORTS TEAM MARKETING INTERN Office Visit [facility] Oncology and Hematology [facility] [place] [address] [place] [address] Sera Jeter DO [address] [place] [address] documented as of this encounter Visit Diagnoses Diagnosis Symptomatic menopausal or female climacteric states- Primary documented in this encounter Care Teams Stenographic Court Reporter Relationship Specialty [place] [address] [phone] PCP - General Internal Medicine 09/29/20 documented as of this encounter
--- OUTSIDE RECORDS SUMMARY | 2024-07-09 13:41 | XMS_ITS | Encounter Summary ---
Author Organization [facility] Address [address] [place] [address] Care Team Providers Care Sfdc Developer Name Role Phone Lionel Cunningham MD Primary Care Provider Encounter Details Date Type Department Care Team (Late st Contact Info) Description 07/28/2002 Outpatient Historical [facility] and [address] [place] [address] Justina Simon MD NO ADDRESS ON FILE Social History Tobacco Use Types Packs/Day Years Used Date Smoking Tobacco: Never Assessed Comments Unknown Sex and Gender Information Value Date Recorded Sex Assigned at Not on file Legal Sex Female 5:26 AM CHASSIS WIRER Gender Identity Not on file Sexual Orientation Not on file documented as of this encounter Plan of Treatment Upcoming Encounters Date Type Department Care Team (Late st Contact Info) Description 05/21/2025 10:00 AM CHASSIS WIRER Office Visit [facility] Oncology and Hematology [facility] [place] [address] [place] [address] Sera Jeter DO [address] [place] [address] documented as of this encounter Visit Diagnoses Not on filedocumented in this encounter Care Teams Sfdc Developer Relationship Specialty [place] [address] [place] [address] PCP - General Internal Medicine 09/29/20 documented as of this encounter
--- OUTSIDE RECORDS SUMMARY | 2024-07-09 13:41 | XMS_ITS | Encounter Summary ---
Author Organization [facility] Address [address] [place] [address] Care Team Providers Care Paint Grinder Stone Mill Name Role Phone Lionel Cunningham MD Primary Care Provider [phone] Encounter Details Date Type Department Care Team (Late st Contact Info) Description 11/26/2000 Outpatient Historical [facility] and [address] [place] [address] Justina Simon MD NO ADDRESS ON FILE Social History Tobacco Use Types Packs/Day Years Used Date Smoking Tobacco: Never Assessed Comments Unknown Sex and Gender Information Value Date Recorded Sex Assigned at Not on file Legal Sex Female 5:26 AM INDUSTRIAL ILLUMINATING ENGINEER Gender Identity Not on file Sexual Orientation Not on file documented as of this encounter Plan of Treatment Upcoming Encounters Date Type Department Care Team (Late st Contact Info) Description 05/21/2025 10:00 AM INDUSTRIAL ILLUMINATING ENGINEER Office Visit [facility] Oncology and Hematology [place] [facility] [place] [address] [place] [address] Sera Jeter DO [address] [facility] [address] [place] [address] documented as of this encounter Visit Diagnoses Not on filedocumented in this encounter Care Teams Paint Grinder Stone Mill Relationship Specialty [place] [address] [place] [address] PCP - General Internal Medicine 09/29/20 documented as of this encounter
--- OUTSIDE RECORDS SUMMARY | 2024-07-09 13:41 | XMS_ITS | Encounter Summary ---
Author Organization [facility] Address [address] [place] [address] Care Team Providers Care Credit Risk Management Director Name Role Phone Lionel Cunningham MD Primary Care Provider Encounter Details Date Type Department Care Team (Latest Contact Info) Description 03/02/2003 Outpatient Historical [facility] CARDIOPULMON[facility], Symone Bernal MD [address] [place] [address] CHEST PAIN NEC (Primary Dx) Social History Tobacco Use Types Packs/Day Years Used Date Smoking Tobacco: Never Assessed Comments Unknown Sex and Gender Information Value Date Recorded Sex Assigned at Not on file Legal Sex Female 5:26 AM TOOL DESIGN DRAFTER Gender Identity Not on file Sexual Orientation Not on file documented as of this encounter Plan of Treatment Upcoming Encounters Date Type Department Care Team (Late st Contact Info) Description 05/21/2025 10:00 AM TOOL DESIGN DRAFTER Office Visit [facility] Oncology and Hematology [place] [facility] [place] [address] [place] [address] Sera Jeter DO [address] [place] [address] documented as of this encounter Visit Diagnoses Diagnosis Other chest pain- Primary documented in this encounter Care Teams Credit Risk Management Director Relationship Specialty [place] [address] [place] [address] PCP - General Internal Medicine 09/29/20 documented as of this encounter
--- OUTSIDE RECORDS SUMMARY | 2024-07-09 13:41 | XMS_ITS | Encounter Summary ---
Author Organization [facility] Address [address] [place] [address] Care Team Providers Care Fishing Instructor Name Role Phone Lionel Cunningham MD Primary Care Provider [phone] Encounter Details Date Type Department Care Team (Late st Contact Info) Description 01/20/2003 Outpatient Historical [facility] and [address] [place] [address] Justina Simon MD NO ADDRESS ON FILE Social History Tobacco Use Types Packs/Day Years Used Date Smoking Tobacco: Never Assessed Comments Unknown Sex and Gender Information Value Date Recorded Sex Assigned at Not on file Legal Sex Female 5:26 AM [place] MAR[place] Gender Identity Not on file Sexual Orientation Not on file documented as of this encounter Plan of Treatment Upcoming Encounters Date Type Department Care Team (Late st Contact Info) Description 05/21/2025 10:00 AM [place] Office Visit [facility] Oncology and Hematology [facility] [facility] [place] [address] [place] [address] Sera Jeter DO [address] [facility] [facility] [address] [place] [address] documented as of this encounter Visit Diagnoses Not on filedocumented in this encounter Care Teams Fishing Instructor Relationship Specialty [place] [address] [place] [address] PCP - General Internal Medicine 09/29/20 documented as of this encounter
--- OUTSIDE RECORDS SUMMARY | 2024-07-09 13:41 | XMS_ITS | Encounter Summary ---
Author Organization [facility] Address [address] [place] [address] Care Team Providers Care Motorized Squad Sergeant Name Role Phone Lionel Cunningham MD Primary Care Provider [phone] Encounter Details Date Type Department Care Team (Late Contact Info) Description 06/15/2006 Outpatient Historical [facility] Internal Medicine [facility] and [address] [place] [address] Symone Altman MD [address] [place] [address] Social History Tobacco Use Types Packs/Day Years Used Date Smoking Tobacco: Never Assessed Comments Unknown Sex and Gender Information Value Date Recorded Sex Assigned at Not on file Legal Sex Female 5:26 AM ACCOUNT EXECUTIVE SOFTWARE SALES Gender Identity Not on file Sexual Orientation Not on file documented as of this encounter Plan of Treatment Upcoming Encounters Date Type Department Care Team (Late st Contact Info) Description 05/21/2025 10:00 AM ACCOUNT EXECUTIVE SOFTWARE SALES Office Visit [facility] Oncology and Hematology [place] [facility] [place] [address] [place] [address] Sera Jeter DO [address] [place] [address] documented as of this encounter Visit Diagnoses Not on filedocumented in this encounter Care Teams Motorized Squad Sergeant Relationship Specialty [place] [address] [address] PCP - General Internal Medicine 09/29/20 documented as of this encounter
--- OUTSIDE RECORDS SUMMARY | 2024-07-09 13:41 | XMS_ITS | Encounter Summary ---
Author Organization [facility] Address [address] [place] [address] Care Team Providers Care Ios Programmer Name Role Phone Lionel Cunningham MD Primary Care Provider [phone] Encounter Details Date Type Department Care Team (Late st Contact Info) Description 10/13/2004 Outpatient Historical [address] [place] [address] Justina Simon MD NO ADDRESS ON FILE Social History Tobacco Use Types Packs/Day Years Used Date Smoking Tobacco: Never Assessed Comments Unknown Sex and Gender Information Value Date Recorded Sex Assigned at Not on file Legal Sex Female 5:26 AM LAVATORY ATTENDANT Gender Identity Not on file Sexual Orientation Not on file documented as of this encounter Plan of Treatment Upcoming Encounters Date Type Department Care Team (Late st Contact Info) Description 05/21/2025 10:00 AM LAVATORY ATTENDANT Office Visit [facility] Oncology and Hematology [facility] [facility] [place] [address] [place] [address] Sera Jeter DO [address] [facility] [address] [place] [address] documented as of this encounter Visit Diagnoses Not on filedocumented in this encounter Care Teams Ios Programmer Relationship Specialty [place] [address] [place] [address] PCP - General Internal Medicine 09/29/20 documented as of this encounter
--- OUTSIDE RECORDS SUMMARY | 2024-07-09 13:41 | XMS_ITS | Encounter Summary ---
Author Organization [facility] Address 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) Social History Tobacco Use Types Packs/Day Years Used Date Smoking Tobacco: Never Assessed Comments Unknown Sex and Gender Information Value Date Recorded Sex Assigned at Not on file Legal Sex Female 5:26 AM STUNNER AND SHACKLER Gender Identity Not on file Sexual Orientation Not on file documented as of this encounter Plan of Treatment Upcoming Encounters Date Type Department Care Team (Late st Contact Info) Description 05/21/2025 10:00 AM STUNNER AND SHACKLER Office Visit [facility] Oncology and Hematology [place] [facility] [place] [address] [facility] [address] [facility] [place] [address] Sera Jeter DO [address] [facility] [address] [place] [address] documented as of this encounter Visit Diagnoses Diagnosis Malignant neoplasm of upper-outer quadrant of female breast (CMS/HCC)- Primary Malignant neoplasm of upper-outer quadrant of female breast documented in this encounter Care Teams Scientific Advisor Relationship Specialty [place] [address] [place] [address] PCP - General Internal Medicine 09/29/20 documented as of this encounter
--- OUTSIDE RECORDS SUMMARY | 2024-07-09 13:41 | XMS_ITS | Encounter Summary ---
Author Organization [facility] Address [address] [place] [address] Phone Care Team Providers Care Optical Effects Layout Person Name Role Phone Lionel Cunningham MD Primary Care Provider [phone] Encounter Details Date Type Department Care Team (Late st Contact Info) Description 06/13/2024 Telephone [facility] [address] [facility] 8[address] [place] [address] [place] [address] Angel Basilio MD [address] [facility] [address] [place] [address] Social History Tobacco Use Types Packs/Day Years Used Date Smoking Tobacco: Never Smokeless Tobacco: Never AUDIT-C Answer Date Recorded Q1: How often do you have a drink containing alc ohol? 2-3 times a week 11/20/2023 Average Number of Drinks Not on file 024 Frequency of Binge Drinking Not on file 01/2024 Comments Unknown Sex and Gender Information Value Date Recorded Sex Assigned at Not on file Legal Sex Female 10:31 PM MUSHROOM CULTIVATOR Gender Identity Not on file Sexual Orientation Not on file documented as of this encounter Miscellaneous Notes * Telephone Encounter - Marielos Talamantes RN - 06/13/2024 12:39 PM MUSHROOM CULTIVATOR See result notes ROOM CULTIVATOR * Telephone Encounter - James Egan - 06/13/2024 12:01 PM CST PT RTN CALL FOR TEST RESULTS, PLS CALL ROOM CULTIVATOR documented in this encounter Plan of Treatment Not on file documented as of this encounter Visit Diagnoses Not on filedocumented in this encounter Care Teams Optical Effects Layout Person Relationship Specialty Start Date End Date Lionel Cunningham MD [address] [place] [address] [place] [address] PCP - General Internal Medicine 10/04/21 documented as of this encounter
--- OUTSIDE RECORDS SUMMARY | 2024-07-09 13:41 | XMS_ITS | Encounter Summary ---
Author Organization [facility] Address [address] [place] [address] Care Team Providers Care Stop Attacher Name Role Phone Lionel Cunningham MD Primary Care Provider [phone] Encounter Details Date Type Department Care Team (Latest Contact Info) Description 03/11/2008 Outpatient Historical [facility], [address] Justina Simon MD NO ADDRESS ON FILE Routine Gynecological Examination Social History Tobacco Use Types Packs/Day Years Used Date Smoking Tobacco: Never Alcohol Use Standard Drinks/Week Comments Yes 1.7 (1 standard drink = 0.6 oz p ure alcohol) Comments No Sex and Gender Information Value Date Recorded Sex Assigned at Not on file Legal Sex Female 5:26 AM FICTION AND NONFICTION WRITER PROSE Gender Identity Not on file Sexual Orientation Not on file documented as of this encounter Plan of Treatment Upcoming Encounters Date Type Department Care Team (Late st Contact Info) Description 05/21/2025 10:00 AM FICTION AND NONFICTION WRITER PROSE Office Visit [facility] Oncology and Hematology [place] [facility] [place] [address] [place] [address] Sera Jeter DO [address] [place] [address] documented as of this encounter Visit Diagnoses Diagnosis Routine gynecological examination documented in this encounter Care Teams Stop Attacher Relationship Specialty [place] [address] [place] [address] PCP - General Internal Medicine 09/29/20 documented as of this encounter
--- OUTSIDE RECORDS SUMMARY | 2024-07-09 13:41 | XMS_ITS | Encounter Summary ---
Author Organization [facility] Address [address] [place] [address] Care Team Providers Care Local Combination Truck Driver Name Role Phone Lionel Cunningham MD Primary Care Provider [phone] Encounter Details Date Type Department Care Team (Latest Contact Info) Description 11/22/2001 Outpatient Historical [facility] CARDIOPULMONARY Senol, Symone Bernal MD [address] [place] [address] PALPITATIONS (Primary Dx) Social History Tobacco Use Types Packs/Day Years Used Date Smoking Tobacco: Never Assessed Comments Unknown Sex and Gender Information Value Date Recorded Sex Assigned at Not on file Legal Sex Female 5:26 AM AVID EDITOR Gender Identity Not on file Sexual Orientation Not on file documented as of this encounter Plan of Treatment Upcoming Encounters Date Type Department Care Team (Late st Contact Info) Description 05/21/2025 10:00 AM AVID EDITOR Office Visit [facility] Oncology and Hematology [place] [facility] [place] [address] [place] [address] Sera Jeter DO [address] [place] [address] documented as of this encounter Visit Diagnoses Diagnosis Palpitations- Primary documented in this encounter Care Teams Local Combination Truck Driver Relationship Specialty [place] [address] [place] [address] PCP - General Internal Medicine 09/29/20 documented as of this encounter
--- OUTSIDE RECORDS SUMMARY | 2024-07-09 13:41 | XMS_ITS | Encounter Summary ---
Author Organization [facility] Address [address] [place] [address] Care Team Providers Care Net Maker Name Role Phone Lionel Cunningham MD Primary Care Provider [phone] Encounter Details Date Type Department Care Team (Latest Contact Info) Description 09/11/2006 Outpatient Historical [facility] Samra Mckee MD [address] [place] [address] Radiotherapy (Primary Dx) Social History Tobacco Use Types Packs/Day Years Used Date Smoking Tobacco: Never Assessed Comments Unknown Sex and Gender Information Value Date Recorded Sex Assigned at Not on file Legal Sex Female 5:26 AM CHIEF STATION ENGINEER Gender Identity Not on file Sexual Orientation Not on file documented as of this encounter Plan of Treatment Upcoming Encounters Date Type Department Care Team (Late st Contact Info) Description 05/21/2025 10:00 AM CHIEF STATION ENGINEER Office Visit [facility] Oncology and Hematology [place] [facility] [place] [address] [place] [address] Sera Jeter DO [address] [place] [address] documented as of this encounter Visit Diagnoses Diagnosis Radiotherapy- Primary documented in this encounter Care Teams Net Maker Relationship Specialty [place] [address] [place] [address] PCP - General Internal Medicine 09/29/20 documented as of this encounter
--- OUTSIDE RECORDS SUMMARY | 2024-07-09 13:41 | XMS_ITS | Encounter Summary ---
Author Organization [facility] Address [address] [place] [address] Care Team Providers Care Pocket Secretary Assembler Name Role Phone Lionle Cunningham MD Primary Care Provider [phone] Encounter Details Date Type Department Care Team (Latest Contact Info) Description 01/06/2008 Outpatient Historical [facility] ANCILLARY SERVICES Symone Altman MD [address] [place] [address] Other Noninfectious Lymphedema Social History Tobacco Use Types Packs/Day Years Used Date Smoking Tobacco: Never Assessed Comments No Sex and Gender Information Value Date Recorded Sex Assigned at Not on file Legal Sex Female 5:26 AM PROJECT DEVELOPMENT COORDINATOR Gender Identity Not on file Sexual Orientation Not on file documented as of this encounter Plan of Treatment Upcoming Encounters Date Type Department Care Team (Late st Contact Info) Description 05/21/2025 10:00 AM PROJECT DEVELOPMENT COORDINATOR Office Visit [facility] Oncology and Hematology [facility] [address] [place] [address] Sera Jeter DO [address] [place] [address] documented as of this encounter Visit Diagnoses Diagnosis Other lymphedema documented in this encounter Care Teams Pocket Secretary Assembler Relationship Specialty [place] [address] [place] [address] PCP - General Internal Medicine 09/29/20 documented as of this encounter
--- OUTSIDE RECORDS SUMMARY | 2024-07-09 13:41 | XMS_ITS | Encounter Summary ---
Author Organization [facility] Address [address] [place] [address] Care Team Providers Care Commercial Banker Name Role Phone Lionel Cunningham MD Primary Care Provider [phone] Reason for Visit * Reason Comments Medication Refill Encounter Details Date Type Department Care Team ([facility] Contact Info) Description 07/09/2012 Refill [facility] Internal Medicine [address] [place] [address] Symone Altman MD [address] [place] [address] Social History Tobacco Use Types Packs/Day Years Used Date Smoking Tobacco: Never Smokeless Tobacco: Never Alcohol Use Standard Drinks/Week Comments Yes 1.7 (1 standard drink = 0.6 oz p ure alcohol) Comments No Sex and Gender Information Value Date Recorded Sex Assigned at Not on file Legal Sex Female 5:26 AM STORE OPERATIONS MANAGER Gender Identity Not on file Sexual Orientation Not on file Occupation Industry Job Start Date Job End Date Not on file Not on file Not on file Not on file documented as of this encounter Plan of Treatment Upcoming Encounters Date Type Department Care Team (Late Contact Info) Description 05/21/2025 10:00 AM STORE OPERATIONS MANAGER Office Visit [facility] Oncology and Hematology [facility] [address] [place] [address] Sera Jeter DO [address] [place] [address] documented as of this encounter Visit Diagnoses Not on filedocumented in this encounter Care Teams Commercial Banker Relationship Specialty [place] [address] [place] [address] PCP - General Internal Medicine 09/29/20 documented as of this encounter
--- OUTSIDE RECORDS SUMMARY | 2024-07-09 13:41 | XMS_ITS | Encounter Summary ---
Author Organization [facility] Address [address] [place] [address] Care Team Providers Care Correctional Case Records Supervisor Name Role Phone Lionel Cunningham MD Primary Care Provider [phone] Encounter Details Date Type Department Care Team (Late st Contact Info) Description 01/01/2008 Outpatient Historical [facility] [place] [address] [place] [address] Gaytan, Stefania Social History Tobacco Use Types Packs/Day Years Used Date Smoking Tobacco: Never Assessed Comments No Sex and Gender Information Value Date Recorded Sex Assigned at Not on file Legal Sex Female 5:26 AM TRIPE WASHER Gender Identity Not on file Sexual Orientation Not on file documented as of this encounter Plan of Treatment Upcoming Encounters Date Type Department Care Team (Late st Contact Info) Description 05/21/2025 10:00 AM TRIPE WASHER Office Visit [facility] Oncology and Hematology [place] [facility] [address] [place] [address] Sera Jeter DO [address] [place] [address] documented as of this encounter Visit Diagnoses Not on filedocumented in this encounter Care Teams Correctional Case Records Supervisor Relationship Specialty [place] [address] [place] [address] PCP - General Internal Medicine 09/29/20 documented as of this encounter
--- OUTSIDE RECORDS SUMMARY | 2024-07-09 13:41 | XMS_ITS | Encounter Summary ---
Author Organization [facility] Address [address] [place] [address] Care Team Providers Care Director Of People Name Role Phone Lionel Cunningham MD Primary Care Provider [phone] Encounter Details Date Type Department Care Team (Late st Contact Info) Description 03/07/2007 Outpatient Historical [facility] and [address] [place] [address] Justina Simon MD NO ADDRESS ON FILE Social History Tobacco Use Types Packs/Day Years Used Date Smoking Tobacco: Never Assessed Comments Unknown Sex and Gender Information Value Date Recorded Sex Assigned at Not on file Legal Sex Female 5:26 AM BUS GREASER Gender Identity Not on file Sexual Orientation Not on file documented as of this encounter Plan of Treatment Upcoming Encounters Date Type Department Care Team (Late st Contact Info) Description 05/21/2025 10:00 AM BUS GREASER Office Visit [facility] Oncology and Hematology [place] [facility] [place] [address] [place] [address] Sera Jeter DO [address] [place] [address] documented as of this encounter Visit Diagnoses Not on filedocumented in this encounter Care Teams Director Of People Relationship Specialty [place] [address] [place] [address] PCP - General Internal Medicine 09/29/20 documented as of this encounter
--- OUTSIDE RECORDS SUMMARY | 2024-07-09 13:41 | XMS_ITS | Encounter Summary ---
Author Organization [facility] Address [address] [place] [address] Care Team Providers Care Reprographics Technician Name Role Phone Lionel Cunningham MD Primary Care Provider Encounter Details Date Type Department Care Team (Late Contact Info) Description 11/14/2006 Outpatient Historical [facility] RADIATION THERAPY Samra Mckee MD [address] [place] [address] Social History Tobacco Use Types Packs/Day Years Used Date Smoking Tobacco: Never Assessed Comments Unknown Sex and Gender Information Value Date Recorded Sex Assigned at Not on file Legal Sex Female 5:26 AM MANAGER REAL ESTATE Gender Identity Not on file Sexual Orientation Not on file documented as of this encounter Plan of Treatment Upcoming Encounters Date Type Department Care Team (Late Contact Info) Description 05/21/2025 10:00 AM MANAGER REAL ESTATE Office Visit [facility] Oncology and Hematology [facility] [place] [address] [place] [address] Sera Jeter DO [address] [place] [address] documented as of this encounter Visit Diagnoses Not on filedocumented in this encounter Care Teams Reprographics Technician Relationship Specialty [place] [address] [place] [address] PCP - General Internal Medicine 09/29/20 documented as of this encounter
--- OUTSIDE RECORDS SUMMARY | 2024-07-09 13:41 | XMS_ITS | Encounter Summary ---
Author Organization [facility] Address [address] [place] [address] Care Team Providers Care Java Lead Developer Name Role Phone Lionel Cunningham MD Primary Care Provider [phone] Encounter Details Date Type Department Care Team (Latest Contact Info) Description 03/17/[address] 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; Carcinoma in Situ of Breast Social History Tobacco Use Types Packs/Day Years Used Date Smoking Tobacco: Never Alcohol Use Standard Drinks/Week Comments Yes 1.7 (1 standard drink = 0.6 oz p ure alcohol) Comments No Sex and Gender Information Value Date Recorded Sex Assigned at Not on file Legal Sex Female 5:26 AM COMMUNITY REPRESENTATIVE Gender Identity Not on file Sexual Orientation Not on file documented as of this encounter Plan of Treatment Upcoming Encounters Date Type Department Care Team (Late st Contact Info) Description 05/21/2025 10:00 AM COMMUNITY REPRESENTATIVE Office Visit [facility] Oncology and Hematology [facility] [place] [address] [place] [address] Sera Jeter DO [address] [place] [address] documented as of this encounter Procedures Procedure Name Priority Date/Time Associated Diagnosis Comments MAMMO DIAGNOSTIC BILATERAL W OR WO CAD Routine 03/17/2008 2:04 PM COMMUNITY REPRESENTATIVE documented in this encounter Results * MAMMO DIGITAL DIAG BILAT (03/17/2008 2:04 PM COMMUNITY REPRESENTATIVE) Anatomical Region Laterality Modality Breast Bilateral Other 03/17/2008 2:04 PM COMMUNITY REPRESENTATIVE Narrative 03/18/2008 8:00 AM COMMUNITY REPRESENTATIVE [facility] [address] [place], [place] [address] Admit Date: 03/17/2008 KRISHNA MAYADALID Kingsley Sex: F Admit Prov: TOMÁS MEJIA Date: 1950 Primary Care Prov: ALVA QUIROS [facility] [id number] Room: SANCHEZ N: [id number] IMAGING SERVICES Ordering Prov: TOMÁS MEJIA Teetee Accession Number: [id number] Interpretation BILATERAL DIAGNOSTIC DIGITAL MAMMOGRAMS WITH COMPUTER ASSISTED DIAGNOSIS 03/17/2008 Reason for this examination: Annual screening study. Clinical History: Left lumpectomy and radiation for carcinoma in 2006. The parenchyma is moderately dense bilaterally. There are postoperative changes on the left. There is no mass, malignant calcification or other sign of malignancy. The films were reviewed using the CAD system. Since 03/26/2007, there has been no significant change. Conclusion: No mammographic evidence of malignancy. Postoperative changes on the left. No significant change since 2006. Overall assessment: BIRADS category 2 - Benign findings Assessment BIRADS: 2-Benign finding Recommendation: Normal interval follow-up Dictated by: PASQUALE WORLEY Electronically signed by: PASQUALE WORLEY 03/18/2008 07:59 Transcribed: 03/17/2008 20:14 AMK Procedure Note Pasquale Worley MD - 03/18/2008 [facility] [address] [place], [place] [address] Admit Date: 03/17/2008 FLIPKRISHNA BEESOILA Sex: F Admit Prov: TOMÁS MEJIA Date: 1950 Primary Care Prov: ALVA QUIROS CMRN: [id number] Room: SANCHEZ SSN: [id number] IMAGING SERVICES Ordering Prov: TOMÁS MEJIA Interpretation BILATERAL DIAGNOSTIC DIGITAL MAMMOGRAMS WITH COMPUTER ASSISTEDDIAGNOSIS 03/17/2008 Reason for this examination: Annual screening study. Clinical History: Left lumpectomy and radiation for carcinoma [id number]. The parenchyma is moderately dense bilaterally. There arepostoperative changes on the left. There is no mass, malignant calcification orother sign of malignancy. The films were reviewed using the CAD system. Since 03/26/2007, there has been no significant change. Conclusion: No mammographic evidence of malignancy. Postoperative changes on the left. No significant change [id number]. Overall assessment: BIRADS category 2 - Benign findings Assessment BIRADS: 2-Benign finding Recommendation: Normal interval follow-up Dictated by: PASQUALE WORLEY Electronically signed by: PASQUALE WORLEY 03/18/2008 07:59 Transcribed: 03/17/2008 20:14 AMK Tomás Mejia MD MAMMO ORDERABLES Final Result documented in this encounter Visit Diagnoses Diagnosis Other screening mammogram Carcinoma in situ of breast documented in this encounter Care Teams Java Lead Developer Relationship Specialty [place] [address] [address] [place] [address] PCP - General Internal Medicine 09/29/20 documented as of this encounter
--- OUTSIDE RECORDS SUMMARY | 2024-07-09 13:41 | XMS_ITS | Encounter Summary ---
Author Organization [facility] Address [address] [place] [address] Care Team Providers Care Financial Recruiter Name Role Phone Lionel Cunningham MD Primary Care Provider [phone] Encounter Details Date Type Department Care Team (Late Contact Info) Description 06/07/2006 Outpatient Historical [facility] Support Serv. (Adt Cardiology[facility]) [address] [place] [address] Darío Moreira MD [address] [facility] [address] [place] [address] Social History Tobacco Use Types Packs/Day Years Used Date Smoking Tobacco: Never Assessed Comments Unknown Sex and Gender Information Value Date Recorded Sex Assigned at Not on file Legal Sex Female 5:26 AM DIESEL TECHNOLOGY INSTRUCTOR Gender Identity Not on file Sexual Orientation Not on file documented as of this encounter Plan of Treatment Upcoming Encounters Date Type Department Care Team (Late Contact Info) Description 05/21/2025 10:00 AM DIESEL TECHNOLOGY INSTRUCTOR Office Visit [facility] Oncology and Hematology [place] [facility] [place] [address] [place] [address] Sera Jeter DO [address] [facility] [address] [place] [address] documented as of this encounter Visit Diagnoses Not on filedocumented in this encounter Care Teams Financial Recruiter Relationship Specialty [place] [address] [place] [address] PCP - General Internal Medicine 09/29/20 documented as of this encounter
--- OUTSIDE RECORDS SUMMARY | 2024-07-09 13:41 | XMS_ITS | Encounter Summary ---
Author Organization [facility] Address [address] [place] [address] Phone Care Team Providers Care Solid State Tester Name Role Phone Lionel Cunningham MD Primary Care Provider [phone] Reason for Referral * (Routine) - Closed Specialty Diagnoses / Procedures Referred By Coryac noemi Referred To Contact Diagnoses Mild intermittent asthma without complication Procedures Pulmonary Function Test -[place] [facility] PFT [facility]- [facility]; Standard; Spirometry, Spirometry w/bronchodilator, DLCO and Lung Volumes Nely Nelson NP [address] [place] [address] Phone: tel: fax: Referral ID Status Reason Start Date Expiration Date Visits Re quested Visits Authorized [id number] Closed 10/18/2021 11/17/2022 1 1 Reason for Visit * (Routine) - Closed Specialty Diagnoses / Procedures Referred By Vikki franklin Referred To Contact Diagnoses Mild intermittent asthma without complication Procedures Pulmonary Function Test -[place] [facility]- [facility]; Standard; Spirometry, Spirometry w/bronchodilator, DLCO and Lung Volumes Nely Nelson NP [address] [facility] [address] [place] [address] Phone: tel: fax: Referral ID Status Reason Start Date Expiration Date Visits Re quested Visits Authorized [id number] Closed 10/18/2021 11/17/2022 1 1 Encounter Details Date Type Department Care Team (Latest Contact Info) Description 10/18/2021 8:45 AM CDT Hospital Encounter [facility] PFT Lab [address] [facility] [address] [place] [address] Mild intermittent asthma without complication Social History Tobacco Use Types Packs/Day Years [...] on file Legal Sex Female 10:31 PM CREDIT ASSISTANT Gender Identity Not on file Sexual Orientation Not on file documented as of this encounter Functional Status * Audit-C Score Answer Date of Assessment Author 3 04/04/2022 8:37 AM Braxton Delgado CMA * Question Answer Date of Assessment Author Q1: How often do you have a drink containing alcohol? 2-3 times a week 11/20/2023 9:41 AM CDT Gilda Borges CMA Q2: How many drinks containing alcohol do you have on a typical day when you are drinking? 1 or 2 04/04/2022 8:37 AM Pamela Delgado CMA Q3: How often do you have six or more drinks on one occasion? Never 04/04/2022 8:37 AM Pamela Delgado CMA documented as of this encounter Plan of Treatment Not on file documented as of this encounter Procedures Procedure Name Priority Date/Time Associated Diagnosis Comments PULMONARY FUNCTION TEST (PFT) Routine 10/18/2021 9:39 AM CDT Mild intermittent asthma without complication documented in this encounter Results * Pulmonary Function Test - (10/18/2021 9:39 AM CDT) FVC PRE 1.65 L [facility] FVC %PRE PRED 62 % [facility] FVC POST 1.81 L [facility] FVC %POST PRED 68 % [facility] FEV1 PRE 1.26 L [facility] FEV1 %PRE PRED 61 % [facility] FEV1 POST 1.38 L [facility] FEV1 %POST PRED 67 % [facility] FEV1/FVC PRE 76.1 % [facility] FEV1/FVC POST 76.7 % [facility] FRC PL PRE 2.76 L [facility] FRC PL %PRE PRED 104 % [facility] RV PRE 2.58 L [facility] RV %PRE PRED 126 % [facility] TLC PRE 4.23 L [facility] TLC %PRE PRED 90 % [facility] DLCO PRE 15.6 ml/min/mmH g [facility] DLCO %PRE PRED 87 % [facility] Anatomical Region Laterality Modality PFT 10/18/2021 8:47 AM CDT Narrative 10/21/2021 4:46 PM CDT SEE PDF PFT performed at:->[facility] Adult PFT Lab- [facility] Procedure:->Standard Standard:->Spirometry, Spirometry w/bronchodilator, DLCO and Lung Volumes us Nely Nelson VOCATIONAL TRAINING INSTRUCTOR PFT ORDERABLES Final Result documented in this encounter Visit Diagnoses Diagnosis Mild intermittent asthma without complication documented in this encounter Care Teams Solid State Tester Relationship Specialty Start Date End Date Lionel Cunningham MD [address] [place] [address] [place] [address] PCP - General Internal Medicine 10/04/21 documented as of this encounter
--- OUTSIDE RECORDS SUMMARY | 2024-07-09 13:41 | XMS_ITS | Encounter Summary ---
Author Organization [facility] Address [address] [place] [address] Care Team Providers Care Judo Teacher Name Role Phone Lionel Cunningham MD Primary Care Provider [phone] Encounter Details Date Type Department Care Team (Late st Contact Info) Description 12/12/2005 Outpatient Historical [facility] and [address] [place] [address] Justina Simon MD NO ADDRESS ON FILE Social History Tobacco Use Types Packs/Day Years Used Date Smoking Tobacco: Never Assessed Comments Unknown Sex and Gender Information Value Date Recorded Sex Assigned at Not on file Legal Sex Female 5:26 AM ANIMAL NUTRITION TEACHER Gender Identity Not on file Sexual Orientation Not on file documented as of this encounter Plan of Treatment Upcoming Encounters Date Type Department Care Team (Late st Contact Info) Description 05/21/2025 10:00 AM ANIMAL NUTRITION TEACHER Office Visit [facility] Oncology and Hematology [place] [facility] [place] [address] [place] [address] Sera Jeter DO [address] [place] [address] documented as of this encounter Visit Diagnoses Not on filedocumented in this encounter Care Teams Judo Teacher Relationship Specialty [place] [address] [place] [address] PCP - General Internal Medicine 09/29/20 documented as of this encounter
--- OUTSIDE RECORDS SUMMARY | 2024-07-09 13:41 | XMS_ITS | Encounter Summary ---
Author Organization [facility] Address [address] [place] [address] Care Team Providers Care Continuity Tester Name Role Phone Lionel Cunningham MD Primary Care Provider [phone] Encounter Details Date Type Department Care Team (Late st Contact Info) Description 12/03/2003 Outpatient Historical [facility] and [address] [place] [address] Justina Simon MD NO ADDRESS ON FILE Social History Tobacco Use Types Packs/Day Years Used Date Smoking Tobacco: Never Assessed Comments Unknown Sex and Gender Information Value Date Recorded Sex Assigned at Not on file Legal Sex Female 5:26 AM BUSINESS SALES CONSULTANT Gender Identity Not on file Sexual Orientation Not on file documented as of this encounter Plan of Treatment Upcoming Encounters Date Type Department Care Team (Late st Contact Info) Description 05/21/2025 10:00 AM BUSINESS SALES CONSULTANT Office Visit [facility] Oncology and Hematology [facility] [place] [address] [facility] [address] [place] [address] Sera Jeter DO [address] [place] [address] documented as of this encounter Visit Diagnoses Not on filedocumented in this encounter Care Teams Continuity Tester Relationship Specialty [place] [address] [place] [address] PCP - General Internal Medicine 09/29/20 documented as of this encounter
--- OUTSIDE RECORDS SUMMARY | 2024-07-09 13:41 | XMS_ITS | Encounter Summary ---
Author Organization [facility] Address [address] [place] [address] Care Team Providers Care Rewinder Operator Name Role Phone Lionel Cunningham MD Primary Care Provider [phone] Encounter Details Date Type Department Care Team (Late Contact Info) Description 03/02/2003 Outpatient Historical [facility] Support Serv. (Adt Cardiology-[facility]) [address] [place] [address] Delvin Irwin MD NO ADDRESS ON FILE Social History Tobacco Use Types Packs/Day Years Used Date Smoking Tobacco: Never Assessed Comments Unknown Sex and Gender Information Value Date Recorded Sex Assigned at Not on file Legal Sex Female 5:26 AM EXPLOSIVES TRUCK DRIVER Gender Identity Not on file Sexual Orientation Not on file documented as of this encounter Plan of Treatment Upcoming Encounters Date Type Department Care Team (Late Contact Info) Description 05/21/2025 10:00 AM EXPLOSIVES TRUCK DRIVER Office Visit [facility] Oncology and Hematology [facility] [address] [place] [address] Sera Jeter DO [address] [place] [address] documented as of this encounter Visit Diagnoses Not on filedocumented in this encounter Care Teams Rewinder Operator Relationship Specialty [place] [address] [place] [address] PCP - General Internal Medicine 09/29/20 documented as of this encounter
--- OUTSIDE RECORDS SUMMARY | 2024-07-09 13:41 | XMS_ITS | Encounter Summary ---
Author Organization [facility] Address [address] [place] [address] Care Team Providers Care Internal Consultant Name Role Phone Lionel Cunningham MD Primary Care Provider [phone] Encounter Details Date Type Department Care Team (Latest Contact Info) Description 03/10/[address] [facility] ANCILLARY SERVICES Symone Altman MD [address] [place] [address] Other Noninfectious Lymphedema Social History Tobacco Use Types Packs/Day Years Used Date Smoking Tobacco: Never Assessed Comments No Sex and Gender Information Value Date Recorded Sex Assigned at Not on file Legal Sex Female 5:26 AM LEARNING CENTER COORDINATOR Gender Identity Not on file Sexual Orientation Not on file documented as of this encounter Plan of Treatment Upcoming Encounters Date Type Department Care Team (Late st Contact Info) Description 05/21/2025 10:00 AM LEARNING CENTER COORDINATOR Office Visit [facility] Oncology and H[facility] [address] [place] [address] Sera Jeter DO [address] [place] [address] documented as of this encounter Visit Diagnoses Diagnosis Other lymphedema documented in this encounter Care Teams Internal Consultant Relationship Specialty [place] [address] [place] [address] PCP - General Internal Medicine 09/29/20 documented as of this encounter
--- OUTSIDE RECORDS SUMMARY | 2024-07-09 13:41 | XMS_ITS | Encounter Summary ---
Author Organization [facility] Address [address] [place] [address] Care Team Providers Care Commodity Manager Name Role Phone Lionel Cunningham MD Primary Care Provider [phone] Encounter Details Date Type Department Care Team (Latest Contact Info) Description 10/13/2006 Outpatient Historical [facility] Samra Mckee MD [address] [place] [address] Radiotherapy (Primary Dx) Social History Tobacco Use Types Packs/Day Years Used Date Smoking Tobacco: Never Assessed Comments Unknown Sex and Gender Information Value Date Recorded Sex Assigned at Not on file Legal Sex Female 5:26 AM ASSEMBLER MOLDED FRAMES Gender Identity Not on file Sexual Orientation Not on file documented as of this encounter Plan of Treatment Upcoming Encounters Date Type Department Care Team (Late st Contact Info) Description 05/21/2025 10:00 AM ASSEMBLER MOLDED FRAMES Office Visit [facility] Oncology and Hematology [facility] [address] [place] [address] Sera Jeter DO [address] [place] [address] documented as of this encounter Visit Diagnoses Diagnosis Radiotherapy- Primary documented in this encounter Care Teams Commodity Manager Relationship Specialty [place] [address] [place] [address] PCP - General Internal Medicine 09/29/20 documented as of this encounter
--- OUTSIDE RECORDS SUMMARY | 2024-07-09 13:41 | XMS_ITS | Encounter Summary ---
Author Organization [facility] Address [address] [place] [address] Care Team Providers Care Final Tester Name Role Phone Lionel Cunningham MD Primary Care Provider [phone] Encounter Details Date Type Department Care Team (Latest Contact Info) Description 02/07/2008 Outpatient Historical [facility] ANCILLARY SERVICES Symone Altman MD [address] [place] [address] Other Noninfectious Lymphedema Social History Tobacco Use Types Packs/Day Years Used Date Smoking Tobacco: Never Assessed Comments No Sex and Gender Information Value Date Recorded Sex Assigned at Not on file Legal Sex Female 5:26 AM APPRAISER OIL AND WATER Gender Identity Not on file Sexual Orientation Not on file documented as of this encounter Plan of Treatment Upcoming Encounters Date Type Department Care Team (Late st Contact Info) Description 05/21/2025 10:00 AM APPRAISER OIL AND WATER Office Visit [facility] Oncology and Hematology [facility] [address] [place] [address] Sera Jeter DO [address] [place] [address] documented as of this encounter Visit Diagnoses Diagnosis Other lymphedema documented in this encounter Care Teams Final Tester Relationship Specialty [place] [address] [place] [address] PCP - General Internal Medicine 09/29/20 documented as of this encounter
--- OUTSIDE RECORDS SUMMARY | 2024-07-09 13:41 | XMS_ITS | Encounter Summary ---
Author Organization [facility] Address [address] [place] [address] Care Team Providers Care Wireless Technician Name Role Phone Lionel Cunningham MD Primary Care Provider [phone] Encounter Details Date Type Department Care Team (Latest Contact Info) Description 08/21/2006 Outpatient Historical [facility] [place] [address] [facility] [address] [place] [address] Carcinoma in Situ of Breast (Primary Dx) Social History Tobacco Use Types Packs/Day Years Used Date Smoking Tobacco: Never Assessed Comments Unknown Sex and Gender Information Value Date Recorded Sex Assigned at Not on file Legal Sex Female 5:26 AM LICENSED SOCIAL WORKER Gender Identity Not on file Sexual Orientation Not on file documented as of this encounter Plan of Treatment Upcoming Encounters Date Type Department Care Team (Late st Contact Info) Description 05/21/2025 10:00 AM LICENSED SOCIAL WORKER Office Visit [facility] Oncology and Hematology [facility] [address] [place] [address] Sera Jeter DO [address] [place] [address] documented as of this encounter Procedures Procedure Name Priority Date/Time Associated Diagnosis Comments HEMOGLOBIN AND HEMATOCRIT Routine 08/21/2006 8:25 AM CDT documented in this encounter Results * HEMOGLOBIN AND HEMATOCRIT (08/21/2006 8:25 AM CDT) HEMOGLOBIN 13.0 11.8 - 14.8 g/dL INTERFACE SYSTEM HEMATOCRIT 38.9 35.5 - 44.0 % INTERFACE SYSTEM 08/21/2006 8:25 AM CDT us Heike Rae MD HEMATOLOGY ORDERABLES Edited INTERFACE SYSTEM Refer to clinic/hospital department documented in this encounter Visit Diagnoses Diagnosis Carcinoma in situ of breast- Primary documented in this encounter Care Teams Wireless Technician Relationship Specialty [place] [address] [facility] [address] [place] [address] PCP - General Internal Medicine 09/29/20 documented as of this encounter
--- OUTSIDE RECORDS SUMMARY | 2024-07-09 13:41 | XMS_ITS | Clinical Summary ---
Author Organization [facility] Address [address] [place] [id number] Care Team Providers Care Wildland Fire Fighter Specialist Name Role Phone Lionel Cunningham MD Primary Care Provider Allergies Active Allergy Reactions Criticality Noted Date Comments Cat Hair Standardized Allergenic Extract Itching Low 03/20/2014 House Dust Other (See Comments),Hives,Short ness of Breath/Wheezing High 10/18/2021 Mold Cough,Shortness of Breath/Wheezing High 10/18/2021 Shellfish Containing Products Other (See Comments) 03/20/2014 Throat closes Sumatriptan Succinate Anaphylaxis High 03/11/2008 Unclassified Drug Other (See Comments) 03/20/20 14 Cat gut suture cause redness White fish causes throat swelling and closure Medications ZYRTEC 10 mg Oral Tab Take 10 mg by mouth daily. Active ALBUTEROL 90 mcg/Actuation Inhalation Aero Take 2 Puffs by inhalation every 6 hours as needed for Other (See Comment). Active EPIPEN 0.3 mg/0.3 mL IM PnIj Inject 0.3 mL by subcutaneous injection one time only. Active omeprazole (PRILOSEC) 20 mg Capsule, Delayed Release(E.C.) Take 1 Cap (20 mg) by mouth daily. 30 Cap 4 5 Active fluticasone propionate (FLONASE) 50 mcg/spray [place], Suspension nasal inhaler daily 2 Active Breo Ellipta 100-25 mcg/dose Disk with Device INHALE 1 PUFF BY MOUTH DAILY. RINSE MOUTH WITH WATER AFTER USE. DO NOT SWALLOW 2 Active ipratropium bromide (ATROVENT) 21 mcg (0.03 %) [place], Non-Aerosol ADMINISTER 2 SPRAYS INTO EACH NOSTRIL FOUR TIMES DAILY NEEDED FOR RHINITIS 2 Active cholecalciferol, vitamin D3, 1,000 unit Take 1,000 Units by mouth daily. Active albuterol sulfate HFA 90 mcg/actuation aerosol inhaler Take 2 Puffs by inhalation. 4 Active budesonide-formo teroL (SYMBICORT) 80-4.5 mcg/actuation HFA Aerosol Inhaler INHALE 2 PUFFS BY MOUTH TWICE DAILY. RINSE MOUTH WITH WATER AFTER USE. DO NOT SWALLOW Active amLODIPine (NORVASC) 2.5 mg tabletIndication s:Essential hypertension Take 1 Tablet (2.5 mg) by mouth daily. 100 Tablet 2 4 Active hydroCHLOROthiaz aneudy 25 mg tabletIndication s:Essential hypertension TAKE 1/2 TABLET BY MOUTH DAILY 50 Tablet 3 4 Active losartan (COZAAR) 50 mg tabletIndication s:Essential hypertension Take 1 Tablet (50 mg) by mouth daily. 100 Tablet 3 4 Active metoprolol succinate (TOPROL XL) 25 mg Extended Release 24 hour tabletIndication s:Migraine without aura and without status migrainosus, not intractable Take 1 Tablet (25 mg) by mouth daily. 100 Tablet 3 4 Active Active Problems Problem Noted Date Diagnosed Date Chronic obstructive asthma, sees crm system administrator at [facility]. 01/08/2023 Lymphedema 08/30/2016 Essential hypertension 02/23/2014 Colon polyps, abnormal, repeat colonoscopy in . 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 03/17/2009 Migraine headache, on metoprolol. Allergy, unspecified not elsewhere classified Esophageal reflux, on PRN omeprazole. Resolved Problems Problem Noted Date Diagnosed Date Resolved Date Family history of diabetes mellitus 08/30/2016 10/28/2021 Family history of uterine cancer 02/23/2014 10/28/2021 Chest pain 02/21/2014 08/30/2016 Palpitation 02/21/2014 08/30/2016 Menopausal and postmenopausal disorder 09/15/2013 10/28/2021 FHx: heart disease 12/29/2008 2 Exercise induced bronchospasm 01/08/2023 Personal history of malignan t neoplasm of breast 10/28/2021 Encounters Date Type Department Care Team Description 07/02/2024 External Device Data ST[facility] ABSTRACTION Provider, Abstract 07/01/2024 External Device Data ST[facility] ABSTRACTION Provider, Abstract 06/24/2024 External Device Data [facility] ABSTRACTION Provider, Abstract 06/05/2024 External Device Data ST[facility] ABSTRACTION Provider, Abstract 05/21/2024 10:45 AM DUCT LAYER HELPER Office Visit [facility] Oncology and Hematology [facility] [address] [place] [address] Sera Jeter V., Ductal carcinoma in situ (DCIS) of left breast (Primary Dx) 05/16/2024 2:51 PM DUCT LAYER HELPER - 05/16/2024 11:59 PM DUCT LAYER HELPER Hospital Encounter [facility] [place] [facility] [address] [place] [address] Sera Jeter V., DO Discharge Disposition: Home or Self Care from Last 3 Months Immunizations Immunization Administration Dates Next Due (ADACEL/BOOSTRIX)(10 YR UP) TDAP VACCINE, 0.5ML, IM 07/21/2011 (PFIZER)(12 YR UP) COVID-19 VACCINE - EMERGENCY USE AUTHORIZATION, MRNA, [id number](PF) 30 MCG/0.3 ML IM SUSP 07/27/2020,07/06/2020 (PNEUMOVAX 23)(50 YRS UP) PN EUMOCOCCAL POLYSACCHARIDE (PPV23) 0.5 ML, IM 09/05/2018 (PREVNAR 13)(6 WKS UP) PNEUM OCOCCAL CONJUGATE (PCV13) 0.5 ML, IM 06/22/2017 INFLUENZA VACCINE HIGH DOSE TRIVALENT SPLIT VIRUS, (65 YR UP), 0.5ML (PF), IM 02/07/2024 INFLUENZA VACCINE QUADRIVALE NT 6 MOS UP CELL DERIVED PF IM 03/28/2019 Influenza Seasonal Unspecifi ed Formulation IM 02/22/2017,02/17/2013,03/14/2012,03/14 Influenza Vaccine High Dose 65+ Yrs IM 8 Pneumococcal conjugate, unsp ecified formulation 06/22/2017 Family History Medical History Relation Name Comments Diabetes Brother Rene Guzman Heart Disease Brother Rene Guzman Hypertension Brother Rene Guzman Kidney Disease Brother Rene Guzman Other Brother Rene Guzman diabetic Healthy Daughter Heart Disease Father Kristian Guzman Heart Failure Father Kristian Guzman High Cholesterol Father Kristian Guzman Hypertension Father Kristian Guzman Stroke Father Kristian Guzman Other Mother Elenor COPD Colon Cancer Paternal Grandfather Andrzej Guzman. Cancer Sister 1 Cortney F cervical Diabetes Sister 1 Cortney F Kidney Disease Sister 1 Cortney F Other Sister 1 Cortney F diabetic Cancer Sister 2 Lizeth K cervical Diabetes Sister 2 Lizeth K Breast Cancer Neg Hx Ovarian Cancer Neg Hx Relation Name Status Comments Brother Rene Guzman Alive Daughter Alive Father Kristian Guzman Mother Elenor Paternal Grandfather Andrzej Guzman. Sister 1 Cortney F Alive Sister 2 Lizeth K Alive Social History Tobacco Use Types Packs/Day Years Used Date Smoking Tobacco: Never Passive Smoke Exposure: Never Smokeless Tobacco: Never Tobacco Cessation:Counseling Given: Not Answered Alcohol Use Standard Drinks/Week Comments Yes 2 (1 standard drink = 0.6 oz pur e alcohol) Financial Resource Strain Answer Date R ecorded How hard is it for you to pa y for the very basics like food, housing, medical care, and heating? Not hard at all 01/08/2023 Food Insecurity Answer Date Recorded In the past 12 months, have you worried that your food would run out before you had money to buy more? Never true 01/08/2023 In the past 12 months, did y ou run out of food and didn't have money to buy more? Never true 01/08/2023 Transportation Needs Answer Date Record ed In the past 12 months, has l ack of transportation kept you from medical appointments or from getting medications? No 01/08/2023 Lack of Transportation (Non-Medical) Not on file 01/08/2023 Comments No Sex and Gender Information Value Date Recorded Sex Assigned at Not on file Legal Sex Female 5:26 AM DUCT LAYER HELPER Gender Identity Not on file Sexual Orientation Not on file Occupation Industry Job Start Date Job End Date Not on file Not on file Not on file Not on file Last Filed Vital Signs Vital Sign Reading Time Taken Comments Blood Pressure 138/70 05/21/2024 10:53 AM DUCT LAYER HELPER Pulse 78 05/21/2024 10:53 AM DUCT LAYER HELPER Temperature 36.1 C (97 F) 05/21/2024 10:53 AM DUCT LAYER HELPER Respiratory Rate 16 02/07/2024 9:38 AM CDT Oxygen Saturation 99% 05/21/2024 10: 53 AM DUCT LAYER HELPER Inhaled Oxygen Concentration - - Weight 71.1 kg (156 lb 11.2 oz) 025 10:53 AM DUCT LAYER HELPER Height 157.5 cm (5' 2 ) 05/21/2024 10:5 3 AM DUCT LAYER HELPER Body Mass Index 28.66 05/21/2024 10:53 AM DUCT LAYER HELPER Plan of Treatment Upcoming Encounters Date Type Department Care Team (Late st Contact Info) Description 05/21/2025 10:00 AM DUCT LAYER HELPER Office Visit [facility] Oncology and Hematology [facility] [address] [place] [address] Sera Jeter V., [address] [place] [address] Health Maintenance Due Date Last Done Comments FIT-DNA Q 3 years 11/27/1996 Flex Sig/CT Colonography Q 5 years 11/27/1996 ZOSTER VACCINE (1 of 2) 11/27/2001 RSV VACCINE (60+ or ) (1 - Risk 60-74 years 1-dose series) 2011 FIT/FOBT Q 1 year 02/08/2012 02/07/2011 DTAP/TDAP/TD VACCINES (2 - T d or Tdap) 07/20/2021 07/21/2011 COVID-19 Vaccine (3 - 2023-2 5 season) 2024 07/27/2020, 07/06/2020 [place] ([place] Preventative Visit/Annual Wellness Visit 05/14/2024 02/07/2024, 01/08/2023, 10/28/2021, Additional history exists BREAST CANCER SCREENING 05/16/2025 05/16/19 25, 05/15/2023, 05/12/2022, Additional history exists COLORECTAL SCREENING 11/10/2027 11/09/2020, 11/09/2020, 05/05/2015, Additional history exists Colorectal Cancer Screening 11/10/2027 PNEUMOCOCCAL VACCINE 65+ YEARS Completed 0 09/05/2018, 06/22/2017, 06/22/2017 OSTEOPOROSIS SCREENING Completed 2, 12/16/2021, 05/10/2018 INFLUENZA VACCINE Completed 02/07/2024, , 03/07/2018, Additional history exists Procedures Procedure Name Priority Date/Time Associated Diagnosis Comments MAMMO 3D LEESA DIAGNOSTIC BILAT W OR WO CAD Routine 05/16/2024 3:19 PM DUCT LAYER HELPER Ductal carcinoma in situ (DCIS) of left breast XR DEXA BONE DENSITY AXIAL 1 OR MORE SITES Routine 12/16/2021 9:28 AM CDT Postmenopausal COLONOSCOPY REPORT 11/09/2020 8: 18 AM CDT POC OCCULT BLOOD, IMMUNO, QUAL, STOOL Routine 02/07/2011 Screening for malignant neoplasm of the rectum from Last 3 Months or Most Recently Relevant to Health Maintenance Results * MAMMO 3D LEEAS DIAGNOSTIC BILAT W OR WO CAD (05/16/2024 3:19 PM DUCT LAYER HELPER) Anatomical Region Laterality Modality Breast Bilateral Mammography 05/16/2024 3:19 PM DUCT LAYER HELPER Impressions 05/19/2024 7:32 AM DUCT LAYER HELPER IMPRESSION: No evidence of malignancy and no interval change. RECOMMENDATIONS: Bilateral annual routine mammogram. OVERALL FINAL ASSESSMENT: BI-RADS CATEGORY 2 - Benign findings DICTATION LOCATION: [facility] 05/19/2024 7:32 AM DUCT LAYER HELPER EXAMINATION: BILATERAL DIAGNOSTIC DIGITAL MAMMOGRAPHY WITH TOMOSYNTHESIS AND CAD DATE: 05/16/2024 3:19 PM HISTORY: Left breast cancer and left lumpectomy. Annual checkup. COMPARISON: 05/25/2023 and 05/12/2022. TECHNIQUE: A diagnostic bilateral mammogram was performed. Low-dose full-field digital breast tomosynthesis examination was performed with 2D and 3D acquisitions. Examination is read in conjunction with computer aided detection. BREAST COMPOSITION: There are scattered areas of fibroglandular density. FINDINGS: There are no suspicious masses, suspicious calcifications, or other suspicious findings in either breast. The postsurgical changes in the left breast are again seen, unchanged. There has been no suspicious interval change. Computer aided detection was used in the interpretation of this examination. Procedure Note Christine Chavez MD - 05/19/2024 EXAMINATION: BILATERAL DIAGNOSTIC DIGITAL MAMMOGRAPHY WITH TOMOSYNTHESIS AND CAD DATE: 05/16/2024 3:19 PM HISTORY: Left breast cancer and left lumpectomy. Annual checkup. COMPARISON: 05/25/2023 and 05/12/2022. TECHNIQUE: A diagnostic bilateral mammogram was performed. Low-dose full-field digital breast tomosynthesis examination was performed with 2D and 3D acquisitions. Examination is read in conjunction with computer aided detection. BREAST COMPOSITION: There are scattered areas of fibroglandular density. FINDINGS: There are no suspicious masses, suspicious calcifications, or other suspicious findings in either breast. The postsurgical changes in the left breast are again seen, unchanged. There has been no suspicious interval change. Computer aided detection was used in the interpretation of this examination. IMPRESSION: No evidence of malignancy and no interval change. RECOMMENDATIONS: Bilateral annual routine mammogram. OVERALL FINAL ASSESSMENT: BI-RADS CATEGORY 2 - Benign findings DICTATION LOCATION: [facility] us Sera Jeter DO MAMMO ORDERABLES Final Resu lt * XR DEXA BONE DENSITY AXIAL 1 OR MORE SITES (12/16/2021 9:28 AM CDT) Anatomical Region Laterality Modality Digital Radiogra phy 12/16/2021 9:28 AM CDT Narrative 12/16/2021 9:32 AM CDT XR DEXA BONE DENSITY AXIAL 1 OR MORE SITES DATE: 12/16/2021 9:28 AM HISTORY: 71 years old Female with post menopausal symptoms. PROCEDURE: Planar images of the lumbar spine and hip(s) using a [employer] DEXA scanner for bone mineral density determination (BMD). Absolute bone mineral density measurements (in gm/cm^2) are available on the original PACS report. Comparison is made with the prior bone density performed 05/10/2018 FINDINGS: Lumbar Spine (L1-L4) T-score: -0.5 : +1.4% change Left femoral neck T-score: -1.2 : -3.8% change Right femoral neck T-score: -1.0 : -3.5% change Comments: None IMPRESSION Osteopenic bone mineral density. STATISTICAL CHANGE: No significant changes since the prior DEXA study. A statistically significant change is defined as a change of greater than 2.5 standard deviations in the least significant difference from the prior study. Least significant differences are defined as follows: Lumbar spine: +/- 0.010 g/cm2 Femoral neck: +/- 0.014 g/cm2 Forearm radius 33%: +/- 0.020 g/cm2 DEFINITIONS: Normal: T-score above -1.0 Osteopenia T-score less than -1.0 and above -2.5 Osteoporosis: T-score < -2.5 FRAX FRACTURE RISK ASSESSMENT: Risk factors: None. 10 Year Probability Of Fracture -Major Osteoporotic: 8.9% -Hip: 1.1% -Comparison population: [place], A major osteoporotic fracture is defined as a fracture of the spine, forearm, hip or shoulder. FOLLOW-UP RECOMMENDATIONS: Patients without high risk factors for osteoporosis: T-score -1.0 to -1.5 - Consider repeat BMD in 5-10 years T-score -1.5 to -2.0 - Consider repeat BMD in 3-5 years T-score -2.0 to - 2.5 - Consider repeat BMD every 2 years Patients on treatment for osteoporosis: 1-2 years after initiation of treatment and every 2 [address] Jaylen Redd DO DICTATION LOCATION: Location 1 - [facility] Procedure Note Jaylen Redd DO - 12/16/2021 XR DEXA BONE DENSITY AXIAL 1 OR MORE SITES DATE: 12/16/2021 9:28 AM HISTORY: 71 years old Female with post menopausal symptoms. PROCEDURE: Planar images of the lumbar spine and hip(s) using a [employer] DEXA scanner for bone mineral density determination (BMD). Absolute bone mineral density measurements (in gm/cm^2) are available on the original PACS report. Comparison is made with the prior bone density performed 05/10/2018 FINDINGS: Lumbar Spine (L1-L4) T-score: -0.5 : +1.4% change Left femoral neck T-score: -1.2 : -3.8% change Right femoral neck T-score: -1.0 : -3.5% change Comments: None IMPRESSION Osteopenic bone mineral density. STATISTICAL CHANGE: No significant changes since the prior DEXA study. A statistically significant change is defined as a change of greater than 2.5 standard deviations in the least significant difference from the prior study. Least significant differences are defined as follows: Lumbar spine: +/- 0.010 g/cm2 Femoral neck: +/- 0.014 g/cm2 Forearm radius 33%: +/- 0.020 g/cm2 DEFINITIONS: Normal: T-score above -1.0 Osteopenia T-score less than -1.0 and above -2.5 Osteoporosis: T-score < -2.5 FRAX FRACTURE RISK ASSESSMENT: Risk factors: None. 10 Year Probability Of Fracture -Major Osteoporotic: 8.9% -Hip: 1.1% -Comparison population: [place], A major osteoporotic fracture is defined as a fracture of the spine, forearm, hip or shoulder. FOLLOW-UP RECOMMENDATIONS: Patients without high risk factors for osteoporosis: T-score -1.0 to -1.5 - Consider repeat BMD in 5-10 years T-score -1.5 to -2.0 - Consider repeat BMD in 3-5 years T-score -2.0 to - 2.5 - Consider repeat BMD every 2 years Patients on treatment for osteoporosis: 1-2 years after initiation of treatment and every 2 [address] Jaylen Redd DO DICTATION LOCATION: Location 1 - [facility] Lionel Cunningham MD DIAGNOSTIC IMAGING ORDERABLES F inal Result * COLONOSCOPY REPORT (11/09/2020 8:18 AM CDT) Narrative Procedure Note Miguel Anand DO - 11/09/2020 8:17 AM CDT [facility] Endoscopy Patient Name: Chris May Procedure Date: 11/09/2020 Date of : 1950 Admit Type: Outpatient Attending MD: Miguel Anand MD Procedure: Colonoscopy Indications: High risk colon cancer surveillance: Personal history of non-advanced adenoma, Last colonoscopy: April 2015 Providers: Miguel Anand MD Referring MD: Lionel Cunningham MD Medicines: Monitored Anesthesia Care Complications: No immediate complications. Procedure: Informed consent was obtained for the procedure, including moderate sedation after risks were discussed. Based on the pre-procedure assessment, including review of the patient's medical history, medications, allergies, and review of systems, the patient was deemed to be an appropriate candidate for sedation. A timeout was performed. Continuous ECG monitoring, pulse oximetry, blood pressure monitoring, and direct observation were performed. The scope was introduced through the anus and advanced to the terminal ileum. The colonoscopy was performed without difficulty. The patient tolerated the procedure well. The quality of the bowel preparation was good. Estimated Blood Loss: Estimated blood loss was minimal. Findings: The perianal examination was normal. A 3 mm polyp was found in the ascending colon. The polyp was sessile. The polyp was removed with a cold snare. Resection and retrieval were complete. Estimated blood loss was minimal. Many diverticula were found in the entire colon. The terminal ileum appeared normal. Non-bleeding hemorrhoids were found during retroflexion. Impression: - One 3 mm polyp in the ascending colon, removed with a cold snare. Resected and retrieved. - Diverticulosis in the entire examined colon. - The examined portion of the ileum was normal. - Non-bleeding hemorrhoids. Recommendation: - Await pathology results. - Repeat colonoscopy in 7 years for surveillance. - High fiber diet. Miguel Anand MD 11/09/2020 8:17:21 AM This report has been signed electronically. Number of Addenda: [address]; [place] [address] Miguel Anand DO GI PROCEDURE ORDERABLES Fin al Result * POC OCCULT BLOOD, IMMUNO, QUAL, STOOL (02/07/2011) OCCULT BLOOD, IMMUNOASSAY STOOL1 POC negative [facility] OCCULT BLOOD, IMMUNOASSAY STOOL2 POC [facility] OCCULT BLOOD, IMMUNOASSAY STOOL3 POC [facility] Stool specimen (specimen) Justina Simon MD POINT OF CARE TESTING Edited [facility] from Last 3 Months or Most Recently Relevant to Health Maintenance Insurance [employer] PPO MCR Advance Directives For more information, please contact: [phone] * Full Code (Latest Code Status on File) Date Activated Date Inactivated Comments 11/09/2020 7:30 AM 11/09/2020 10:54 AM * Full Code Date Activated Date Inactivated Comments 05/05/2015 6:58 AM 05/05/2015 11:15 AM * Full Code Date Activated Date Inactivated Comments 07/23/2014 10:29 AM 07/23/2014 2:59 PM * Full Code Date Activated Date Inactivated Comments 04/17/2014 7:33 AM 04/17/2014 11:37 AM Care Teams Wildland Fire Fighter Specialist Relationship Specialty [place] [address] [facility] [place] [id number] PCP - General Internal Medicine 09/29/20
--- OUTSIDE RECORDS SUMMARY | 2024-07-09 13:41 | XMS_ITS | Encounter Summary ---
Author Organization [facility] Address [address] [place] [address] Care Team Providers Care Cloth Bleaching Supervisor Name Role Phone Lionel Cunningham MD Primary Care Provider [phone] Encounter Details Date Type Department Care Team (Latest Contact Info) Description 08/02/2006 Outpatient Historical [place] [address] [facility] [address] [place] [address] Carcinoma in Situ of Breast (Primary Dx) Social History Tobacco Use Types Packs/Day Years Used Date Smoking Tobacco: Never Assessed Comments Unknown Sex and Gender Information Value Date Recorded Sex Assigned at Not on file Legal Sex Female 5:26 AM BREAKER ENGINEER Gender Identity Not on file Sexual Orientation Not on file documented as of this encounter Plan of Treatment Upcoming Encounters Date Type Department Care Team (Late st Contact Info) Description 05/21/2025 10:00 AM BREAKER ENGINEER Office Visit [facility] Oncology and Hematology [facility] [address] [place] [address] Sera Jeter DO [address] [place] [address] documented as of this encounter Visit Diagnoses Diagnosis Carcinoma in situ of breast- Primary documented in this encounter Care Teams Cloth Bleaching Supervisor Relationship Specialty [place] [address] [place] [address] PCP - General Internal Medicine 09/29/20 documented as of this encounter
--- OUTSIDE RECORDS SUMMARY | 2024-07-09 13:41 | XMS_ITS | Encounter Summary ---
Author Organization [facility] Address [address] [place] [address] Care Team Providers Care Rf Microwave Engineer Name Role Phone Lionel Cunningham MD Primary Care Provider [phone] Encounter Details Date Type Department Care Team (Late st Contact Info) Description 12/09/2001 Outpatient Historical [facility] and [address] [place] [address] Justina Simon MD NO ADDRESS ON FILE Social History Tobacco Use Types Packs/Day Years Used Date Smoking Tobacco: Never Assessed Comments Unknown Sex and Gender Information Value Date Recorded Sex Assigned at Not on file Legal Sex Female 5:26 AM CONCRETE FOREMAN Gender Identity Not on file Sexual Orientation Not on file documented as of this encounter Plan of Treatment Upcoming Encounters Date Type Department Care Team (Late st Contact Info) Description 05/21/2025 10:00 AM CONCRETE FOREMAN Office Visit [facility] Oncology and Hematology [facility] [address] [place] [address] Sera Jeter DO [address] [place] [address] documented as of this encounter Visit Diagnoses Not on filedocumented in this encounter Care Teams Rf Microwave Engineer Relationship Specialty [place] [address] [place] [address] PCP - General Internal Medicine 09/29/20 documented as of this encounter
--- OUTSIDE RECORDS SUMMARY | 2024-07-09 13:41 | XMS_ITS | Encounter Summary ---
Author Organization [facility] Address [address] [place] [address] Care Team Providers Care Database Marketing Analyst Name Role Phone Lionel Cunningham MD Primary Care Provider [phone] Encounter Details Date Type Department Care Team (Latest Contact Info) Description 06/12/2006 Outpatient Historical [facility] [place] [address] [facility] [address] [place] [address] Malignant Neoplasm of Breast (Female), Unspecified Site (CMS/HCC) (Primary Dx) Social History Tobacco Use Types Packs/Day Years Used Date Smoking Tobacco: Never Assessed Comments Unknown Sex and Gender Information Value Date Recorded Sex Assigned at Not on file Legal Sex Female 5:26 AM BUSINESS ACCOUNT MANAGER Gender Identity Not on file Sexual Orientation Not on file documented as of this encounter Plan of Treatment Upcoming Encounters Date Type Department Care Team (Late st Contact Info) Description 05/21/2025 10:00 AM BUSINESS ACCOUNT MANAGER Office Visit [facility] Oncology and Hematology [facility] [address] [place] [address] Sera Jeter DO [address] [place] [address] documented as of this encounter Procedures Procedure Name Priority Date/Time Associated Diagnosis Comments HEMOGLOBIN AND HEMATOCRIT Routine 06/07/2006 10:42 AM BUSINESS ACCOUNT MANAGER documented in this encounter Results * HEMOGLOBIN AND HEMATOCRIT (06/07/2006 10:42 AM BUSINESS ACCOUNT MANAGER) HEMOGLOBIN 14.0 11.8 - 14.8 g/dL INTERFACE SYSTEM HEMATOCRIT 42.1 35.5 - 44.0 % INTERFACE SYSTEM 06/07/2006 10:4 2 AM BUSINESS ACCOUNT MANAGER us Heike Rae MD HEMATOLOGY ORDERABLES Edited INTERFACE SYSTEM Refer to clinic/hospital department documented in this encounter Visit Diagnoses Diagnosis Malignant neoplasm of breast (female), unspecified site (CMS/HCC)- Primary Malignant neoplasm of breast (female), unspecified site documented in this encounter Care Teams Database Marketing Analyst Relationship Specialty [place] [address] [facility] [address] [place] [id number] PCP - General Internal Medicine 09/29/20 documented as of this encounter
--- OUTSIDE RECORDS SUMMARY | 2024-07-09 13:41 | XMS_ITS | Encounter Summary ---
Author Organization [facility] Address [address] [place] [address] Care Team Providers Care Dredge Lever Operator Name Role Phone Lioenl Cunningham MD Primary Care Provider [phone] Encounter Details Date Type Department Care Team (Late st Contact Info) Description 05/21/2006 Inpatient Historical HIS [facility] Amy Paris MD [address] [facility] [address] [place] [address] [place] [address] [address] Malignant Neoplasm of Breast (Female), Unspecified Site (CMS/HCC) (Primary Dx) Social History Tobacco Use Types Packs/Day Years Used Date Smoking Tobacco: Never Assessed Comments Unknown Sex and Gender Information Value Date Recorded Sex Assigned at Not on file Legal Sex Female 5:26 AM BUSINESS MANAGEMENT PROFESSOR Gender Identity Not on file Sexual Orientation Not on file documented as of this encounter Plan of Treatment Upcoming Encounters Date Type Department Care Team (Late st Contact Info) Description 05/21/2025 10:00 AM BUSINESS MANAGEMENT PROFESSOR Office Visit [facility] Oncology and Hematology [facility] [place] [address] [place] [address] Sera Jeter DO [address] [place] [address] documented as of this encounter Visit Diagnoses Diagnosis Malignant neoplasm of breast (female), unspecified site (CMS/HCC)- Primary Malignant neoplasm of breast (female), unspecified site documented in this encounter Care Teams Dredge Lever Operator Relationship Specialty [place] [address] [place] [address] PCP - General Internal Medicine 09/29/20 documented as of this encounter
--- OUTSIDE RECORDS SUMMARY | 2024-07-09 13:41 | XMS_ITS | Encounter Summary ---
Author Organization [facility] Address [address] [place] [address] Care Team Providers Care Career Counselor Name Role Phone Lionel Cunningham MD Primary Care Provider [phone] Encounter Details Date Type Department Care Team (Latest Contact Info) Description 11/09/2004 Outpatient Historical HIS [facility] Symone Duran MD [address] [place] [address] HYPERLIPIDEMIA NEC/NOS (Primary Dx) Social History Tobacco Use Types Packs/Day Years Used Date Smoking Tobacco: Never Assessed Comments Unknown Sex and Gender Information Value Date Recorded Sex Assigned at Not on file Legal Sex Female 5:26 AM RESEARCH MICROBIOLOGIST Gender Identity Not on file Sexual Orientation Not on file documented as of this encounter Plan of Treatment Upcoming Encounters Date Type Department Care Team (Late st Contact Info) Description 05/21/2025 10:00 AM RESEARCH MICROBIOLOGIST Office Visit [facility] Oncology and Hematology [facility] [address] [place] [address] Sera Jeter DO [address] [place] [address] documented as of this encounter Procedures Procedure Name Priority Date/Time Associated Diagnosis Comments LIPID PANEL Routine 11/09/2004 3:36 PM CDT COMPREHENSIVE METABOLIC PANEL Routine 11/09/2004 3:36 PM CDT documented in this encounter Results * (ABNORMAL) LIPID PANEL (11/09/2004 3:36 PM CDT) CHOLESTEROL 159 100 - 199 mg/dL INTERFACE SYSTEM TRIGLYCERIDE 151(H) 10 - 149 mg/dL INTERFACE SYSTEM HDL 54 40 - 59 mg/dL INTERFACE SYSTEM LDL CALCULATED 75 <=99 mg/dL INTERFACE SYSTEM CHOL/HDL RATIO 2.9 2.0 - 5.0 INTER FACE SYSTEM Comment:See interpretive lakeisha a section for risk classifications. LIPID PANEL COMMENT See below INTERFACE SYSTEM Comment: Adult ATP III Classifications: Cholesterol (mg/dL) Triglyceride (mg/dL) Desirable <200 Normal <150 Borderline 200 - 239 Borderline High 150 - 199 High >=240 High 200 - 499 Very High >=500 HDL Cholesterol (mg/dL) LDL (mg/dL) Low (increased risk) <40 Optimal <100 High (reduced risk) >=60 Near or above optimal 100 - 129 Borderline 130 - 159 High 160 - 189 Very High >=190 LDL calculation is not accurate if Triglycerides are greater than 400 mg /dL Pediatric NCEP Classifications: Cholesterol(<20 years),(mg/dL) Triglyceride Desirable <170 Pediatric classification Borderline 170 - 199 not defined. High >=200 HDL (<5 years) LDL (mg/dL) No Reference Range Established Desirable <110 Borderline 110 - 129 High >=130 11/09/2004 3:36 PM CDT us Symone Altman MD CHEMISTRY ORDERABLES Final Res ult INTERFACE SYSTEM Refer to clinic/hospital department * COMPREHENSIVE METABOLIC PANEL (11/09/2004 3:36 PM CDT) GLUCOSE 80 65 - 109 mg/dL INTERFACE SYSTEM CREATININE 0.7 0.4 - 1.2 mg/dL INTERFACE SYSTEM CALCIUM 9.1 8.6 - 10.2 mg/dL INTERFACE SYSTEM AST 23 12 - 32 U/L INTERFACE SYSTEM ALKALINE PHOSPHATASE 64 35 - 104 U/L INTERFACE SYSTEM BUN 11 6 - 20 mg/dL INTERFACE SYSTEM BILIRUBIN TOTAL 0.4 0.2 - 1.0 mg/dL INTERFACE SYSTEM ALBUMIN 4.2 3.4 - 4.8 g/dL INTERFACE SYSTEM TOTAL PROTEIN 7.4 6.3 - 8.6 g/dL INTERFACE SYSTEM ALT 13 0 - 31 U/L INTERFACE SYSTEM SODIUM 140 135 - 145 mmol/L INTERFACE SYSTEM POTASSIUM 3.5 3.5 - 4.9 mmol/L INTERFACE SYSTEM CHLORIDE 103 96 - 108 mmol/L INTERFACE SYSTEM CO2 28 22 - 30 mmol/L INTERFACE SYSTEM 11/09/2004 3:36 PM CDT us Symone Altman MD CHEMISTRY ORDERABLES Final Res ult INTERFACE SYSTEM Refer to clinic/hospital department documented in this encounter Visit Diagnoses Diagnosis Other and unspecified hyperlipidemia- Primary documented in this encounter Care Teams Career Counselor Relationship Specialty [place] [address] [place] [phone] PCP - General Internal Medicine 09/29/20 documented as of this encounter
--- OUTSIDE RECORDS SUMMARY | 2024-07-09 13:41 | XMS_ITS | Encounter Summary ---
Author Organization [facility] Address [address] [place] [address] Care Team Providers Care Engagement Engineer Name Role Phone Lionel Cunningham MD Primary Care Provider [phone] Encounter Details Date Type Department Care Team (Late Contact Info) Description 10/13/2004 Outpatient Historical [facility] Internal Medicine [address] [place] [address] Symone Altman MD [address] [place] [address] Social History Tobacco Use Types Packs/Day Years Used Date Smoking Tobacco: Never Assessed Comments Unknown Sex and Gender Information Value Date Recorded Sex Assigned at Not on file Legal Sex Female 5:26 AM CELLAR HAND Gender Identity Not on file Sexual Orientation Not on file documented as of this encounter Plan of Treatment Upcoming Encounters Date Type Department Care Team (Late st Contact Info) Description 05/21/2025 10:00 AM CELLAR HAND Office Visit [facility] Oncology and Hematology [facility] [address] [place] [address] Sera Jeter DO [address] [place] [address] documented as of this encounter Visit Diagnoses Not on filedocumented in this encounter Care Teams Engagement Engineer Relationship Specialty [place] [address] [place] [address] PCP - General Internal Medicine 09/29/20 documented as of this encounter
--- OUTSIDE RECORDS SUMMARY | 2024-07-09 13:42 | XMS_ITS | Encounter Summary ---
Author Organization [facility] Address [address] [place] [address] Care Team Providers Care Biomedical Engineering Technician Name Role Phone Lionel Cunningham MD Primary Care Provider [phone] Encounter Details Date Type Department Care Team (Late st Contact Info) Description 11/01/1998 Outpatient Historical [facility] and [address] [place] [address] Justina Simon MD NO ADDRESS ON FILE Social History Tobacco Use Types Packs/Day Years Used Date Smoking Tobacco: Never Assessed Comments Unknown Sex and Gender Information Value Date Recorded Sex Assigned at Not on file Legal Sex Female 5:26 AM BUNDLE TIER Gender Identity Not on file Sexual Orientation Not on file documented as of this encounter Plan of Treatment Upcoming Encounters Date Type Department Care Team (Late st Contact Info) Description 05/21/2025 10:00 AM BUNDLE TIER Office Visit [facility] Oncology and Hematology [facility] [place] [address] [place] [address] Sera Jeter DO [address] [place] [address] documented as of this encounter Visit Diagnoses Not on filedocumented in this encounter Care Teams Biomedical Engineering Technician Relationship Specialty [place] [address] [place] [address] PCP - General Internal Medicine 09/29/20 documented as of this encounter
--- OUTSIDE RECORDS SUMMARY | 2024-07-09 13:42 | XMS_ITS | Referral Summary ---
Author Organization [facility] Address [address] [place] [address] Care Team Providers Care Office Machine Servicer Apprentice Name Role Phone Lionel Cunningham MD Primary Care Provider [phone] Encounters Date Type Department Care Team Description 06/13/2024 Telephone [facility] Cardiology [facility] Advanced Medicine [address]th [place] [address] [place] [address] Angel Basilio MD 05/29/2024 1:35 PM BARN WORKER - 05/29/2024 11:59 PM BARN WORKER Hospital Encounter [facility] [address] [place] [address] Angel Basilio MD Chest pain, unspecified type Discharge Disposition: Discharge to home or self care 05/05/2024 Orders Only [facility] Cardiology [address] [place] [address] Advanced Medicine 8th [place] [address] [place] [address] Angel Basilio MD 04/29/2024 9:30 AM BARN WORKER Office Visit [facility] Cardiology [facility] Medical Office Building [address] [place] [address] Angel Basilio MD Primary hypertension (Primary Dx); Palpitations; Ductal carcinoma in situ (DCIS) of left breast; Chest pain, unspecified type from Last 3 Months Allergies Active Allergy Reactions Criticality Noted Date Comments Cat Hair Standardized Allergenic Extract Itching Low 03/20/2014 House Dust Eye irritation,Hives,Shor tness of breath,Sneezing,[place] ing High 10/18/2021 Mold Cough,Shortness of breath,Sneezing,Wheez ing High 10/18/2021 Shellfish Unknown Low 12/05/2016 [place] Shellfish Containing Products Anaphylaxis,Unknown High 03/20/2014 Reaction: Anaphylaxis, Throat closes Sumatriptan Anaphylaxis High Sumatriptan Succinate Anaphylaxis High 03/11/2008 Unclassified Drug Unknown 03/20/2014 Cat gut suture cause redness White fish causes throat swelling and closure Medications cetirizine (ZyrTEC) 10 mg tablet 2 (two) times a day 7 Active amLODIPine (NORVASC) 2.5 mg tablet 1 tablet (2.5 mg total) daily Active omeprazole (PriLOSEC) 20 mg capsule Take 1 capsule (20 mg total) by mouth as needed Active hydroCHLOROthiaz aneudy (HYDRODIURIL) 25 mg tablet TAKE 1/2 TABLET BY MOUTH DAILY. 9 Active losartan (COZAAR) 50 mg tablet Take 1 tablet (50 mg total) by mouth daily 7 Active metoprolol XL (TOPROL-XL) 25 mg 24 hr tablet Take 1 tablet (25 mg total) by mouth daily 7 Active cholecalciferol (VITAMIN D-3) 25 mcg (1,000 unit) tablet Take 1 tablet (1,000 Units total) by mouth daily Active EPINEPHrine 0.3 mg/0.3 mL auto-injection syringeIndicatio ns:Anaphylaxis Inject 0.3 mL (0.3 mg total) into the muscle as instructed as needed for anaphylaxis Call 911 after use. 2 each 1 2 Active triamcinolone (KENALOG) 0.1 % ointment Apply sparingly to affected area 2-3 times daily. 30 g 2 Active mv-mn/folic ac/calcium/vit K1 (WOMEN'S 50 PLUS MULTIVITAMIN ORAL) Take 1 tablet by mouth daily Active ipratropium (ATROVENT) 21 mcg (0.03 %) nasal sprayIndications :Chronic Non-Allergic Rhinitis,rhinorr hea Administer 2 sprays into each nostril 4 (four) times a day as needed for rhinitis 240 mL 11 4 11/15/19 25 Active fluticasone propionate (FLONASE) 50 mcg/actuation nasal spray Administer 2 sprays into each nostril daily 1 each 4 11/20/19 25 Active budesonide-formo teroL (Symbicort) 80-4.5 mcg/actuation inhalerIndicatio ns:Moderate persistent asthma without complication Inhale 2 puffs 2 (two) times a day Rinse mouth with water after use. Do not swallow. 1 each 4 Active albuterol HFA (ProAir HFA) 90 mcg/actuation inhalerIndicatio ns:Mild intermittent asthma without complication Inhale 2 puffs every 4 (four) hours as needed for wheezing 1 each 3 4 Active Active Problems Problem Noted Date Diagnosed Date Chest pain 04/29/2024 Primary hypertension 12/18/2023 Palpitations 12/18/2023 Abnormal EKG 12/18/2023 Ductal carcinoma in situ (DCIS) of left breast 0 12/18/2023 Increased body mass index (BMI) 06/23/2016 Malignant neoplasm of breast 09/23/2015 Scar 07/19/2015 Mild intermittent asthma without complication History of radiation therapy Immunizations Immunization Administration Dates Next Due Influenza, Quadrivalent, Lucero l Culture-based MDCK, Preservative Free, Antibiotic Free, Intramuscular 03/28/2019 Social History Tobacco Use Types Packs/Day Years Used Date Smoking Tobacco: Never Smokeless Tobacco: Never Tobacco Cessation:Counseling Given: Not Answered AUDIT-C Answer Date Recorded Q1: How often do you have a drink containing alc ohol? 2-3 times a week 11/20/2023 Average Number of Drinks Not on file 024 Frequency of Binge Drinking Not on file 01/2024 Comments Unknown Sex and Gender Information Value Date Recorded Sex Assigned at Not on file Legal Sex Female 10:31 PM BARN WORKER Gender Identity Not on file Sexual Orientation Not on file Last Filed Vital Signs Vital Sign Reading Time Taken Comments Blood Pressure 136/74 05/29/2024 2:11 PM BARN WORKER Pulse 66 05/29/2024 2:11 PM BARN WORKER Temperature 36.1 C (97 F) 11/20/2023 9:39 AM CDT Respiratory Rate 16 04/04/2022 8:28 AM BARN WORKER Oxygen Saturation 99% 04/29/2024 9:55 AM BARN WORKER Inhaled Oxygen Concentration - - Weight 71.2 kg (157 lb) 04/29/2024 9:55 AM BARN WORKER Height 157.5 cm (5' 2 ) 04/29/2024 9:55 AM BARN WORKER Body Mass Index 28.72 04/29/2024 9:55 AM BARN WORKER Plan of Treatment Not on file Procedures Procedure Name Priority Date/Time Associated Diagnosis Comments CT HEART MORPHOLOGY AND CORONARY ARTERIES W CONTRAST Schedule Routine, Read Routine (OP Routine) 05/29/2024 2:24 PM BARN WORKER Chest pain, unspecified type BASIC METABOLIC PANEL Routine 05/05/2024 9:45 AM BARN WORKER from Last 3 Months Results * CTA Heart and Coronary Arteries W Morphology when Performed (05/29/2024 2:24 PM BARN WORKER) Anatomical Region Laterality Modality Chest N/A Computed Tomogra phy 05/29/2024 2:52 PM BARN WORKER Impressions 05/29/2024 7:54 PM BARN WORKER 1. Calcium score is 0. 2. No evidence of coronary artery atherosclerosis or significant stenosis. Dictated by: Va Monterroso MD, MPH The radiology attending physician has personally reviewed this study, and had reviewed and/or edited this written report and agrees with it. Electronically signed by: Justino Waddell M.D. Narrative 05/29/2024 7:54 PM BARN WORKER EXAMINATION: CORONARY CT ANGIOGRAM HISTORY: Chest pain/anginal equivalent. Intermediate CAD risk. TECHNIQUE: CT angiography of the coronary arteries was performed after the administration of 92 mL of Optiray 350. Images were also obtained precontrast for the purposes of calcium scoring. Prior to the examination, 5 mg of metoprolol was administered intravenously and 0.8 mg nitroglycerin was administered sublingually. The patient's heart rate at the time of the examination was 68 beats per minute. Images were transferred to a 3D workstation for additional post-processing. FINDINGS: The coronary arteries are right system dominant with a wrap around left anterior descending artery. There is no anomalous coronary origin or course. No focal caliber change or irregularity to suggest coronary artery dissection. Right coronary system: No significant calcified or noncalcified atherosclerotic disease. Left coronary system: No significant calcified or noncalcified atherosclerotic disease. The calculated calcium score is 0. Other findings: No pulmonary consolidation. No pleural effusion. No pneumothorax. Heart size is mildly enlarged. No pericardial effusion. Central pulmonary arteries are patent. No significant atherosclerotic calcifications of the thoracic aorta. Distal esophagus is unremarkable. Small hiatal hernia. Hepatic cyst is present. Procedure Note Justino Waddell MD PhD - 05/29/2024 EXAMINATION: CORONARY CT ANGIOGRAM HISTORY: Chest pain/anginal equivalent. Intermediate CAD risk. TECHNIQUE: CT angiography of the coronary arteries was performed after the administration of 92 mL of Optiray 350. Images were also obtained precontrast for the purposes of calcium scoring. Prior to the examination, 5 mg of metoprolol was administered intravenously and 0.8 mg nitroglycerin was administered sublingually. The patient's heart rate at the time of the examination was 68 beats per minute. Images were transferred to a 3D workstation for additional post-processing. FINDINGS: The coronary arteries are right system dominant with a wrap around left anterior descending artery. There is no anomalous coronary origin or course. No focal caliber change or irregularity to suggest coronary artery dissection. Right coronary system: No significant calcified or noncalcified atherosclerotic disease. Left coronary system: No significant calcified or noncalcified atherosclerotic disease. The calculated calcium score is 0. Other findings: No pulmonary consolidation. No pleural effusion. No pneumothorax. Heart size is mildly enlarged. No pericardial effusion. Central pulmonary arteries are patent. No significant atherosclerotic calcifications of the thoracic aorta. Distal esophagus is unremarkable. Small hiatal hernia. Hepatic cyst is present. IMPRESSION: 1. Calcium score is 0. 2. No evidence of coronary artery atherosclerosis or significant stenosis. Dictated by: Va Monterroso MD, MPH The radiology attending physician has personally reviewed this study, and had reviewed and/or edited this written report and agrees with it. Electronically signed by: Justino Waddell M.D. Angel Basiilo MD IMG CT PROCEDURES Final Resul t * Basic metabolic panel (05/05/2024 9:45 AM BARN WORKER) Glucose 96 65 - 99 mg/dL [facility] Comment: Fasting reference interval BUN 18 7 - 25 mg/dL [facility] Creatinine 0.84 0.60 - 1.00 mg/dL [facility] eGFR 74 > OR = 60 mL/min/1.7 3m2 [facility] BUN/creat ratio SEE NOTE: (calc) [facility] Comment: Not Reported: BUN and Creatinine are within reference range. Sodium 141 135 - 146 mmol/L [facility] Potassium, pl 4.2 3.5 - 5.3 mmol/L [facility]S noemi Ritch[facility] Chloride 104 98 - 110 mmol/L [facility] no[facility] CO2 31 20 - 32 mmol/L Adela [facility]itch[facility] Calcium 9.0 8.6 - 10.4 mg/dL Ad[facility]Heidi Ritchie 05/05/2024 9:45 AM BARN WORKER 05/05/2024 9:46 AM BARN WORKER Narrative [facility] - 05/05/2024 11:18 PM BARN WORKER AN UPDATE OR CORRECTION HAS BEEN MADE TO NAME us Angel Basilio MD LAB BLOOD ORDERABLES Final Re sult [facility] [address] [place] [address] from Last 3 Months Insurance [place] [address] [employer] MED[employer] [place] [address] [place] [address] MEDICARE MEDICARE SOLUTIONS Care Teams Office Machine Servicer Apprentice Relationship Specialty Start Date End Date Lionel Cunningham MD [facility] [place] [address] PCP - General Internal Medicine 10/04/21
--- OUTSIDE RECORDS SUMMARY | 2024-07-09 13:42 | XMS_ITS | Encounter Summary ---
Author Organization [facility] Address [address] [place]n: Epic Prelude ADT [place] [address] Care Team Providers Care Railroad Car Painter Name Role Phone Lionel Cunningham MD Primary Care Provider [phone] Encounter Details Date Type Department Care Team (Late Contact Info) Description 11/22/1994 Outpatient Historical Justina Simon MD NO ADDRESS ON FILE Social History Tobacco Use Types Packs/Day Years Used Date Smoking Tobacco: Never Assessed Comments Unknown Sex and Gender Information Value Date Recorded Sex Assigned at Not on file Legal Sex Female 5:26 AM TUBE AND MANIFOLD BUILDER Gender Identity Not on file Sexual Orientation Not on file documented as of this encounter Plan of Treatment Upcoming Encounters Date Type Department Care Team (Late st Contact Info) Description 05/21/2025 10:00 AM TUBE AND MANIFOLD BUILDER Office Visit [facility] Oncology and Hematology [facility] [address] [place] [address] Sera Jeter DO [address] [place] [address] documented as of this encounter Visit Diagnoses Not on filedocumented in this encounter Care Teams Railroad Car Painter Relationship Specialty [place] [address] [place] [address] PCP - General Internal Medicine 09/29/20 documented as of this encounter
--- OUTSIDE RECORDS SUMMARY | 2024-07-09 13:42 | XMS_ITS ---
Author Organization [facility] Address [address] [address] Care Team Providers Care Net Developer Name Role Phone Lionel Cunningham MD Primary Care Provider [phone] Active Problems Problem Noted Date Diagnosed Date Chest pain 04/29/2024 Primary hypertension 12/18/2023 Palpitations 12/18/2023 Abnormal EKG 12/18/2023 Ductal carcinoma in situ (DCIS) of left breast 0 12/18/2023 Increased body mass index (BMI) 06/23/2016 Malignant neoplasm of breast 09/23/2015 Scar 07/19/2015 Mild intermittent asthma without complication History of radiation therapy Current Treatment and Therapy Plans No current plan information found. Past Treatment and Therapy Plans No past plan information found. Lifetime Dose Tracking * Chemical Lifetime Dose Automatic Entry Manual Entr y DLP 1,292 mGycm 1,292 mGycm 0 mGycm
--- OUTSIDE RECORDS SUMMARY | 2024-07-09 13:42 | XMS_ITS | Clinical Summary ---
Author Organization [facility] Address [address] [address] Care Team Providers Care Principal Trainer Name Role Phone Lionel Cunningham MD Primary Care Provider [phone] Allergies Active Allergy Reactions Criticality Noted Date Comments Cat Hair Standardized Allergenic Extract Itching Low 03/20/2014 House Dust Eye irritation,Hives,Shor tness of breath,Sneezing,[place] High 10/18/2021 Mold Cough,Shortness of breath,Sneezing,[place] High 10/18/2021 Shellfish Unknown Low 12/05/2016 Carolina Shellfish Containing Products Anaphylaxis,Unknown High 03/20/2014 Reaction: [...] after use. Do not swallow. 1 each 11 4 Active albuterol HFA (ProAir HFA) 90 [...] asthma without complication History of radiation therapy Encounters Date Type Department Care Team Description 06/13/2024 Telephone [facility] [address] [facility] [address] [place] [address] [place] [address] Angel Basilio MD 05/29/2024 1:35 PM FORGESMITH - 05/29/2024 11:59 PM FORGESMITH Hospital Encounter [facility] [address] [place] [address] Angel Basilio MD Chest pain, unspecified type Discharge Disposition: Discharge to home or self care 05/05/2024 Orders Only [facility] [facility] 8th [place] [address] [place] [address] Angel Basilio MD 04/29/2024 9:30 AM FORGESMITH Office Visit [facility] Medical Office Building [address] [place] [address] Angel Basilio MD Primary hypertension (Primary Dx); Palpitations; Ductal carcinoma in situ (DCIS) of left breast; Chest pain, unspecified type from Last 3 Months Immunizations Immunization Administration Dates Next Due Influenza, Quadrivalent, Lucero l Culture-based MDCK, Preservative Free, Antibiotic Free, Intramuscular 03/28/2019 Surgical History Surgery Date Site/Laterality Comments BREAST LUMPECTOMY Left BREAST BIOPSY 03/31/2011 Right BREAST BIOPSY 03/31/2011 Right Medical History Medical History Date Comments Covid-19 09/2021 Essential hypertension Palpitations Ductal carcinoma in situ (DCIS) of left breast 2 006 Family History Medical History Relation Name Comments Asthma Brother Family history of asthma - (Added by TW Conv) Coronary artery disease Brother Diabetes Brother Hypertension Brother Coronary artery disease Father Heart attack Father Heart failure Father Hypertension Father Asthma Mother Family history of asthma - (Added by TW Conv) COPD Mother Family history of chronic obstructive pulmonary disease - (Added by TW Conv) Heart failure Mother Diabetes Sister Hypertension Sister Kidney disease Sister Relation Name Status Comments Brother Father Mother Sister Social History Tobacco Use Types Packs/Day Years [...] on file Legal Sex Female 10:31 PM FORGESMITH Gender Identity Not on file Sexual Orientation Not on file Obstetrics History Last Filed Vital Signs Vital Sign Reading Time Taken Comments Blood Pressure 136/74 05/29/2024 2:11 PM FORGESMITH Pulse 66 05/29/2024 2:11 PM FORGESMITH Temperature 36.1 C (97 F) 11/20/2023 9:39 AM CDT Respiratory Rate 16 04/04/2022 8:28 AM FORGESMITH Oxygen Saturation 99% 04/29/2024 9:55 AM FORGESMITH Inhaled Oxygen Concentration - - Weight 71.2 kg (157 lb) 04/29/2024 9:55 AM FORGESMITH Height 157.5 cm (5' 2 ) 04/29/2024 9:55 AM FORGESMITH Body Mass Index 28.72 04/29/2024 9:55 AM FORGESMITH Plan of Treatment Health Maintenance Due Date Last Done Comments Breast Cancer Screening-Mammogram 1950 Colon Cancer Screening-Colonoscopy 1950 Depression Screening 1950 Fall Risk Assessment 1950 Hepatitis C Screening 1950 Hepatitis B Screening 11/27/1969 Zoster Vaccine (1 of 2) 11/27/2001 Well Visit 65+ 11/27/2016 DTaP/Tdap/Td Vaccine (2 - Td or Tdap) 07/20/2021 07/21/2011 Osteoporosis Screening-Bone Density Scan 12/17/2023 12/16/2021, 12/16/2021, 05/10/2018 Covid-19 Vaccine (2023-2 5 season) 2024 02/14/2022, 08/22/2021, 03/02/2021, Additional history exists Pneumococcal vaccine 65+ Completed 09/05/2018, 01/2018 Influenza Vaccine Completed 02/07/2024, , 05/02/2021, Additional history exists Procedures Procedure Name Priority Date/Time Associated Diagnosis Comments CT HEART MORPHOLOGY AND CORONARY ARTERIES W CONTRAST Schedule Routine, Read Routine (OP Routine) 05/29/2024 2:24 PM FORGESMITH Chest pain, unspecified type BASIC METABOLIC PANEL Routine 05/05/2024 9:45 AM FORGESMITH from Last 3 Months Results * CTA Heart and Coronary Arteries W Morphology when Performed (05/29/2024 2:24 PM FORGESMITH) Anatomical Region Laterality Modality Chest N/A Computed Tomogra phy 05/29/2024 2:52 PM FORGESMITH Impressions 05/29/2024 7:54 PM FORGESMITH 1. Calcium score is 0. 2. No evidence of coronary artery atherosclerosis or significant stenosis. Dictated by: Va Monterroso MD, MPH The radiology attending physician has personally reviewed this study, and had reviewed and/or edited this written report and agrees with it. Electronically signed by: Justino Waddell M.D. Narrative 05/29/2024 7:54 PM FORGESMITH EXAMINATION: CORONARY CT ANGIOGRAM HISTORY: Chest pain/anginal [...] Electronically signed by: Justino Waddell M.D. Angel Anthony Basilio MD IM CT PROCEDURES Final Resul t * Basic metabolic panel (05/05/2024 9:45 AM FORGESMITH) Glucose 96 65 - 99 mg/dL [facility] Comment: Fasting reference interval BUN 18 7 - 25 mg/dL [facility] Regi [facility] Creatinine 0.84 0.60 - 1.00 mg/dL [facility] eGFR 74 > OR = 60 mL/min/1.7 3m2 [facility] BUN/creat ratio SEE NOTE: 6 - 22 (calc) Adela Ritchie Comment: Not Reported: BUN and Creatinine are within reference range. Sodium 141 135 - 146 mmol/L [facility] Potassium, pl 4.2 3.5 - 5.3 mmol/L [facility] Chloride 104 98 - 110 mmol/L [facility] CO2 31 20 - 32 mmol/L [facility] Calcium 9.0 8.6 - 10.4 mg/dL [facility] 05/05/2024 9:45 AM FORGESMITH 05/05/2024 9:46 AM FORGESMITH Narrative [facility] - 05/05/2024 11:18 PM FORGESMITH AN UPDATE OR CORRECTION HAS BEEN MADE TO NAME us Angel Basilio MD LAB BLOOD ORDERABLES Final Re sult ADELA [facility] [address] [place] [address] from Last 3 Months Insurance MEDICARE SOLUTIONS [facility] MEDICARE [facility] MEDICARE Address: [address] [place] [address] [facility]ICARE [facility] Address: [facility] [id number] [place] [address] [employer] MED[employer]ARE MED[employer]ARE SOLUTIONS Care Teams Principal Trainer Relationship Specialty Start Date End Date Lionel Cunningham MD [address] [place] [address] [place] [address] PCP - General Internal Medicine 10/04/21
--- OUTSIDE RECORDS SUMMARY | 2024-07-09 13:42 | XMS_ITS | Encounter Summary ---
Author Organization [facility] Address [address] [place]: Epic Prelude ADT [address] [address] Care Team Providers Care High School Physical Education Teacher Name Role Phone Lionel Cunningham MD Primary Care Provider [phone] Encounter Details Date Type Department Care Team (Late Contact Info) Description 12/01/1996 Outpatient Historical Conversion, History Justina Simon MD NO ADDRESS ON FILE Social History Tobacco Use Types Packs/Day Years Used Date Smoking Tobacco: Never Assessed Comments Unknown Sex and Gender Information Value Date Recorded Sex Assigned at Not on file Legal Sex Female 5:26 AM CHILLER OPERATOR Gender Identity Not on file Sexual Orientation Not on file documented as of this encounter Plan of Treatment Upcoming Encounters Date Type Department Care Team (Late Contact Info) Description 05/21/2025 10:00 AM CHILLER OPERATOR Office Visit [facility] Oncology and Hematology [facility] [address] [place] [address] Sera Jeter DO [address] [place] [address] documented as of this encounter Visit Diagnoses Not on filedocumented in this encounter Care Teams High School Physical Education Teacher Relationship Specialty [place] [address] [address] PCP - General Internal Medicine 09/29/20 documented as of this encounter
--- OUTSIDE RECORDS SUMMARY | 2024-07-09 13:42 | XMS_ITS | Encounter Summary ---
Author Organization [facility] Address [address] [place] [address] Care Team Providers Care Floater Operator Name Role Phone Lionel Cunningham MD Primary Care Provider [phone] Encounter Details Date Type Department Care Team (Late st Contact Info) Description 03/30/1999 Outpatient Historical [facility] Internal Medicine [facility] and [address] [place] [address] Kathya Warner MD [address] [address] Social History Tobacco Use Types Packs/Day Years Used Date Smoking Tobacco: Never Assessed Comments Unknown Sex and Gender Information Value Date Recorded Sex Assigned at Not on file Legal Sex Female 5:26 AM ROLL PRESS OPERATOR Gender Identity Not on file Sexual Orientation Not on file documented as of this encounter Plan of Treatment Upcoming Encounters Date Type Department Care Team (Late st Contact Info) Description 05/21/2025 10:00 AM ROLL PRESS OPERATOR Office Visit [facility] Oncology and Hematology [facility] [address] [facility] [address] [place] [address] Sera Jeter DO [address] [place] [address] documented as of this encounter Visit Diagnoses Not on filedocumented in this encounter Care Teams Floater Operator Relationship Specialty [place] [address] [place] [phone] PCP - General Internal Medicine 09/29/20 documented as of this encounter
--- OUTSIDE RECORDS SUMMARY | 2024-07-09 13:42 | XMS_ITS | Encounter Summary ---
Author Organization [facility] Address [address] [place] [address] Care Team Providers Care Aquatic Laborer Name Role Phone Lionel Cunningham MD Primary Care Provider [phone] Encounter Details Date Type Department Care Team (Late st Contact Info) Description 11/14/1999 Outpatient Historical [address] [place] [address] Justina Simon MD NO ADDRESS ON FILE Social History Tobacco Use Types Packs/Day Years Used Date Smoking Tobacco: Never Assessed Comments Unknown Sex and Gender Information Value Date Recorded Sex Assigned at Not on file Legal Sex Female 5:26 AM RESEARCH PROGRAM INTERN Gender Identity Not on file Sexual Orientation Not on file documented as of this encounter Plan of Treatment Upcoming Encounters Date Type Department Care Team (Late st Contact Info) Description 05/21/2025 10:00 AM RESEARCH PROGRAM INTERN Office Visit [facility] Oncology and Hematology [facility] [address] [place] [address] Sera Jeter DO [address] [facility] [place] [address] documented as of this encounter Visit Diagnoses Not on filedocumented in this encounter Care Teams Aquatic Laborer Relationship Specialty [place] [address] [place] [address] PCP - General Internal Medicine 09/29/20 documented as of this encounter
[2024-07-09 13:53] LABS: NT Pro B Type Natriuretic Pept 1450 pg/mL (19.9-100); Troponin I < 0.012 ng/mL (0.000-0.034)
[2024-07-09 15:59] LABS: Potassium 3.7 mmol/L (3.4-5.0)
--- NOTE | 2024-07-09 16:12 | PC.NURSE ---
Spoke with Minerva from [facility] transfer center for update. She states patient has been accepted to [facility] and is on the weight list.
--- NOTE | 2024-07-09 21:12 | PC.NURSE ---
This RN updated the [facility] transfer center. Extract Mixer states pt. is listed as high priority, but has no estimate as to when the pt. will receive a bed.
[2024-07-10] VITALS (43 sets, daily range): BP systolic 110–147; BP diastolic 42–67; PULSE 39–64; RESP 10–23; TEMP 36.6; O2SAT 95–100
--- NOTE | 2024-07-10 07:51 | PC.NURSE ---
Breakfast tray ordered for pt
--- NOTE | 2024-07-10 11:18 | PC.NURSE ---
Ordered lunch tray for pt
--- NOTE | 2024-07-10 12:31 | PC.NURSE ---
Pts lunch tray was missing her 2 drinks, dietary contacted 2 times about replacing the missing drinks.
--- NOTE | 2024-07-10 17:31 | PC.NURSE ---
Ordered dinner tray for pt.
[2024-07-10] MEDS: MAGNESIUM SULF 2 GM/WATER 50ML 2 GM/50 ML BAG IVPB (18:47)
--- NOTE | 2024-07-10 18:47 | PC.NURSE ---
1830 This RN visualized abnormal ventricular rhythm on monitor and entered pts room to find pt pulseless, CPR started immediately, deyvi blanco called and Dr. Pedersen at bedside. 183 Pt regained consciousness during chest compressions and compressions were discontinued.
--- NOTE | 2024-07-10 19:27 | PC.NURSE ---
Pt requested some medication for nausea. Per MD Pedersen we cannot give pt any nausea/vomiting medication due to the side effect of prolonging QT intervals. suggests giving pt an alcohol swab and putting it under her nose to help with symptoms. Pt was given alcohol swabs at this time.
[2024-07-10 20:11] LABS: Basophils Percent Auto 0.4 % (0.2-1.2); Eosinophils Absolute Auto 0.1 K/mm3 (0-0.3); Eosinophils Percent Auto 1.3 % (0-4.4); Hematocrit 41.7 % (37.0-47.0); Hemoglobin 13.1 g/dL (12.0-15.0); Immature Granulocyte Absolute 0.07 K/mm3 (0.00-0.031); Immature Granulocyte Percent A 0.7 % (0-0.5); Immature Platelet Fraction Pct 4.6 % (0.9-11.2); Lymphocytes Absolute Auto 2.33 K/mm3 (0.9-3.2); Lymphocytes Percent Auto 22.8 % (18.3-44.2); Mean Corpuscular HGB Conc 31.4 g/dl (32-36); Mean Corpuscular Hemoglobin 27.3 pg (26-34); Mean Corpuscular Volume 86.9 fl (80-100); Mean Platelet Volume 10.3 fl (7.4-10.4); Monocytes Absolute Auto 0.8 K/mm3 (0.1-0.6); Monocytes Percent Auto 8.2 % (2.6-8.5); Neutrophils Absolute Auto 6.8 K/mm3 (1.3-6.7); Neutrophils Percent Auto 66.6 % (45.5-73.1); Platelet Count Result 177 k/mm3 (150-375); Red Cell Distribution Width 13.2 % (11.5-14.5); White Blood Count 10.2 K/mm3 (4.5-10.0)
[2024-07-10 20:19] LABS: Alanine Aminotransferase 89 U/L (6-35); Alkaline Phosphatase 73 U/L (38-126); Anion Gap 12 mmol/L (4-12); Aspartate Amino Transferase 164 U/L (14-36); Bilirubin,Total 0.8 mg/dL (0.2-1.3); Blood Urea Nitrogen 25 mg/dL (7-17); Carbon Dioxide 29 mmol/L (22-30); Chloride 100 mmol/L (98-107); Estimated CRCL calculation 56 ml/min; Estimated Glomerular Filt Rate > 60; Glucose 120 mg/dL (65-110); Potassium 3.3 mmol/L (3.4-5.0); Sodium 141 mmol/L (137-145)
[2024-07-10 20:20] LABS: Platelet Estimate Adequate (Adequate); Schistocytes None Seen
== END 2024-07-10 21:05 | disposition short-term general hospital (02) ==
PROVIDERS: Emergency Medicine; Emergency Provider Emergency Medicine
DX: I44.2 Atrioventricular block, complete (principal); I47.21 Torsades de pointes; I46.9 Cardiac arrest, cause unspecified; J45.909 Unspecified asthma, uncomplicated; Z85.3 Personal history of malignant neoplasm of breast; K21.9 Gastro-esophageal reflux disease without esophagitis; I10 Essential (primary) hypertension
CPT/HCPCS: 36415; 71045; 71046; 80053; 83735; 83880; 84132; 84484; 85025; 85055; 93005; 96365; 96366; 96375; 99285; C1751; J1610; J2550; J3475